=== PATIENT | female | born 1950 | race Caucasian/White ===

== ENCOUNTER 2018-02-25 12:50 | Outpatient (RCR) | payer MEDICARE, SELFPAY ==
--- NOTE | 2018-02-25 12:58 | COCO.CNN ---
Primary Reason for Visit Insurance (Asking for assistance filling out [facility] patient assistance application) Referral to Care Coordination Referral to Care Coordination: No Referral to Services: No - Referral From Referral From: Self Care Plan - Plan of Care Assessment/Background: Elsa brought in the patient assistance application from [facility] asking for assistance in filling it out. She needed to apply for [facility] which we did today. [facility] Action Plan/Progress: She will wait for the denial from [facility] then return and complete the [facility] patient assistance application.
--- NOTE | 2018-02-25 13:05 | PDOC.CNN_ITS ---
Primary Reason for Visit Insurance (Asking for assistance filling out [facility] patient assistance application ) Referral to Care Coordination Referral to Care Coordination: No Referral to Services: No - Referral From Referral From: Self Care Plan - Plan of Care Assessment/Background: Elsa brought in the patient assistance application from [facility] asking for assistance in filling it out. She needed to apply for [facility] which we did today. [facility] Action Plan/Progress: She will wait for the denial from [employer] then return and complete the [facility] patient assistance application.
== END 2018-02-27 23:59 | disposition home or self-care (01) ==
LOC: COCO 12:50
PROVIDERS: PCP Nurse Practitioner Family; Visit Provider Nurse Practitioner Family

== ENCOUNTER 2018-04-07 13:50 | Emergency (ER) | payer OTHER, SELFPAY ==
[2018-04-07 13:55] VITALS: BP 168/79; PULSE 82; RESP 16; TEMP 36.6; O2SAT 97
--- NOTE | 2018-04-07 14:07 | W.ED.GENAD ---
Discharge Plan Disposition Patient Disposition: HOME Condition: Stable Discharge Details Chief Complaint: Orthopedic Clinical Impression: Groin strain Primary Care Provider: Suzy Montejo ED Provider: Haseeb Zimmer Home Meds and New Rx's Prescriptions: New methocarbamol 500 mg tablet 500 - 1,000 mg PO Q6H PRN (Reason: Back pain or spasm) Qty: 14 RF: 0 ibuprofen 600 mg tablet 600 mg PO Q8H PRN (Reason: pain) Qty: 14 RF: 0 Continue ascorbic acid (vitamin C) 500 MG tablet 500 mg PO DAILY RF: 0 meclizine 12.5 MG tablet 25 mg PO tid prn Qty: 30 RF: 2 vitamin A 8,000 UNIT capsule 8,000 units PO DAILY RF: 0 cyanocobalamin (vitamin B-12) [Vitamin B-12] 1,000 MCG tablet 1,000 mcg PO DAILY RF: 0 jlctnmdy-dkyp-GJ-calcium-mins [Women's Daily Caplet] 1 EACH tablet 1 ea PO DAILY RF: 0 pravastatin 20 MG tablet 20 mg PO DAILY Qty: 90 RF: 4 hydrochlorothiazide 12.5 MG tablet 12.5 mg PO DAILY Qty: 90 RF: 4 Metoprolol Succinate 50 MG TAB.ER.24H 50 mg PO DAILY Qty: 90 RF: 4 Discontinued ibuprofen 200 MG capsule 1 - 2 cap PO PRN RF: 0 Discharge Instructions Instructions: Muscle Strain (ED) Additional Instructions: Home to rest today. Continue ibuprofen in the form of prescribed Motrin. No additional ibuprofen with this. Methocarbamol as needed for muscular pain. May use heat and gentle massage to reduce discomfort as well. Return if you develop back pain, numbness or tingling of extremities, or any other acute concerns. Follow-up with regular doctor if not improved in 5 days time Stand Alone Forms: Work Release Medical Decision Making This is a 67-year-old female who works as a [employer]. She states that she had 2 perform double duties recently and since that time as a dull, achy, constant bilateral groin pain is worse with adduction of the legs. No back pain. No numbness or tingling. She has had no motor weakness. She denies a fall. Her exam shows no deficits. There is no evidence of sciatica. It is consistent with groin/abductor strain. Will increase her use of NSAIDs, add methocarbamol, provide her with a day of work. She understands return precautions. HPI General Mode of arrival: ambulatory. Date/Time Provider Initiated Documentation: 04/07/18 13:55. Limitations to Documentation: no limitations. Information obtained by: patient. 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 Patient reports no radiation. Patient started experiencing this day(s) and it has been constant. Rest improves symptom(s), Movement worsens symptoms . Patient notes no other symptoms.. Patient did receive the following treatments prior to arrival, none Related Data Home Medications Medication Instructions Recorded Confirmed ascorbic acid (vitamin C) 500 mg PO DAILY 05/30/13 03/04/18 meclizine 25 mg PO tid prn #30 tab-cap 06/05/14 03/04/18 cyanocobalamin (vitamin B-12) 1,000 mcg PO DAILY 07/04/16 03/04/18 [Vitamin B-12] cfmgvuab-icba-EJ-calcium-mins 1 ea PO DAILY 07/04/16 03/04/18 [Women's Daily Caplet] vitamin A 8,000 units PO DAILY tab-cap 07/04/16 03/04/18 hydrochlorothiazide 12.5 mg PO DAILY #90 tab-cap 08/28/17 03/04/18 pravastatin 20 mg PO DAILY #90 tab-cap 08/28/17 03/04/18 ibuprofen 600 mg PO Q8H PRN #14 tab 04/07/18 methocarbamol 500 - 1,000 mg PO Q6H PRN #14 tab 04/07/18 Previous Rx's Medication Instructions Recorded hydrochlorothiazide 12.5 mg PO DAILY #90 tab-cap 08/28/17 pravastatin 20 mg PO DAILY #90 tab-cap 08/28/17 ibuprofen 600 mg PO Q8H PRN #14 tab 04/07/18 methocarbamol 500 - 1,000 mg PO Q6H PRN #14 tab 04/07/18 Allergies Allergy/AdvReac Type Severity Reaction Status Date / Time No Known Allergies Allergy Unverified 03/04/18 09:20 General Stated Complaint: Orthopedic TON: 4 Review of Systems Review of Systems No bowel or bladder incontinence, no motor weakness, no numbness or tingling, no fall or injury. 8 systems reviewed and otherwise negative PFSH Family History Mother Essential hypertension Personal history of malignant neoplasm Alzheimers disease Hyperlipidemia Father Personal history of malignant neoplasm Grandfather Alzheimers disease Grandfather Personal history of malignant neoplasm Grandmother No problems noted. Grandmother Alzheimers disease Brother No problems noted. Maternal Aunt Alzheimers disease Son No problems noted. Son No problems noted. Daughter No problems noted. Brother No problems noted. Bladder Surgery (~05/1998) HERNIA REPAIR Vaginal hysterectomy (11/07/99) Family History Mother Essential hypertension Personal history of malignant neoplasm Alzheimers disease Hyperlipidemia Father Personal history of malignant neoplasm Grandfather Alzheimers disease Grandfather Personal history of malignant neoplasm Grandmother No problems noted. Grandmother Alzheimers disease Brother No problems noted. Maternal Aunt Alzheimers disease Son No problems noted. Son No problems noted. Daughter No problems noted. Brother No problems noted. Social History current occupational status: employed current occupation: [employer] frequency: 5-6 times per week duration: 30-45 minutes/day Smoking/Tobacco Use Status: Never alcohol intake: current alcohol intake frequency: a few times a month substance use type: does not use hope/amish: No preference special hope needs: No Surgical History Bladder Surgery (~05/1998) HERNIA REPAIR Vaginal hysterectomy (11/07/99) Social History current occupational status: employed current occupation: [employer] frequency: 5-6 times per week duration: 30-45 minutes/day Smoking/Tobacco Use Status: Never alcohol intake: current alcohol intake frequency: a few times a month substance use type: does not use hope/amish: No preference special hope needs: No Exam Narrative Exam Narrative: GEN: awake, alert, oriented 3. Pleasant, well groomed, interactive. HEAD: Normocephalic, atraumatic ENT: Mucous membranes moist, oropharynx unremarkable, External ear exam unremarkable EYES: PERRL, EOMI NECK: Full ROM, no EWELINA, no menigismus CHEST/RESP: Nontender, clear to auscultation bilateral, no wheeze/rhonchi/rales CARDIOVASCULAR: RRR, no murmur, rub marilee. 2+ Rad pulse bilateral ABDOMEN: Soft, nontender, no mass. +Bowel sounds EXT: Full ROM, no edema, no rash. Motor is 5 out of 5 throughout the upper and lower extremity. 2+ patella and ankle reflex bilaterally. Sensation including saddle distribution is intact. Great toe proprioception intact. Pain is elicited with resisted adduction of the groin Neuro: Grossly normal neurologic exam, conversant, interactive. Psych: Speech fluent, thoughts congruent, affect normal Course Vital Signs Temperature 36.6 C 04/07/18 13:55 Pulse 82 04/07/18 13:55 Respiratory Rate 16 04/07/18 13:55 Blood Pressure 168/79 H 04/07/18 13:55 Pulse Oximetry 97 04/07/18 13:55 Temperature 36.6 C 04/07/18 13:55 Temperature Source Temporal Artery Scan 04/07/18 13:55 Pulse 82 04/07/18 13:55 Respiratory Rate 16 04/07/18 13:55 Respiratory Effort 04/07/18 13:59 Blood Pressure 168/79 H 04/07/18 13:55 Pulse Oximetry 97 04/07/18 13:55 Oxygen Delivery Method Room Air 04/07/18 13:55 Oxygen Flow Rate 0 04/07/18 13:55 Pain Level 7 04/07/18 13:55
--- NOTE | 2018-04-07 14:11 | ED.GENADUL_ITS ---
Discharge Plan Disposition Patient Disposition: HOME Condition: Stable Discharge Details Chief Complaint: Orthopedic Clinical Impression: Groin strain Primary Care Provider: Suzy Montejo ED Provider: Haseeb Zimmer Home Meds and New Rx's Prescriptions: New methocarbamol 500 mg tablet 500 - 1,000 mg PO Q6H PRN (Reason: Back pain or spasm) Qty: 14 RF: 0 ibuprofen 600 mg tablet 600 mg PO Q8H PRN (Reason: pain) Qty: 14 RF: 0 Continue ascorbic acid (vitamin C) 500 MG tablet 500 mg PO DAILY RF: 0 meclizine 12.5 MG tablet 25 mg PO tid prn Qty: 30 RF: 2 vitamin A 8,000 UNIT capsule 8,000 units PO DAILY RF: 0 cyanocobalamin (vitamin B-12) [Vitamin B-12] 1,000 MCG tablet 1,000 mcg PO DAILY RF: 0 uiacokey-wrqb-PP-calcium-mins [Women's Daily Caplet] 1 EACH tablet 1 ea PO DAILY RF: 0 pravastatin 20 MG tablet 20 mg PO DAILY Qty: 90 RF: 4 hydrochlorothiazide 12.5 MG tablet 12.5 mg PO DAILY Qty: 90 RF: 4 Metoprolol Succinate 50 MG TAB.ER.24H 50 mg PO DAILY Qty: 90 RF: 4 Discontinued ibuprofen 200 MG capsule 1 - 2 cap PO PRN RF: 0 Discharge Instructions Instructions: Muscle Strain (ED) Additional Instructions: Home to rest today. Continue ibuprofen in the form of prescribed Motrin. No additional ibuprofen with this. Methocarbamol as needed for muscular pain. May use heat and gentle massage to reduce discomfort as well. Return if you develop back pain, numbness or tingling of extremities, or any other acute concerns. Follow-up with regular doctor if not improved in 5 days time Stand Alone Forms: Work Release Medical Decision Making This is a 67-year-old female who works as a [employer] school/[employer]. She states that she had 2 perform double duties recently and since that time as a dull, achy, constant bilateral groin pain is worse with adduction of the legs. No back pain. No numbness or tingling. She has had no motor weakness. She denies a fall. Her exam shows no deficits. There is no evidence of sciatica. It is consistent with groin/abductor strain. Will increase her use of NSAIDs, add methocarbamol, provide her with a day of work. She understands return precautions. HPI General Mode of arrival: ambulatory . Date/Time Provider Initiated Documentation: 04/07/18 13:55 . Limitations to Documentation: no limitations . Information obtained by: patient . 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 Patient reports no radiation. Patient started experiencing this day(s) and it has been constant. Rest improves symptom(s), Movement worsens symptoms . Patient notes no other symptoms.. Patient did receive the following treatments prior to arrival, none Related Data Home Medications Medication Instructions Recorded Confirmed ascorbic acid (vitamin C) 500 mg PO DAILY 05/30/13 03/04/18 meclizine 25 mg PO tid prn #30 tab-cap 06/05/14 03/04/18 cyanocobalamin (vitamin B-12) 1,000 mcg PO DAILY 07/04/16 03/04/18 [Vitamin B-12] mwuzwukb-vklj-AE-calcium-mins 1 ea PO DAILY 07/04/16 03/04/18 [Women's Daily Caplet] vitamin A 8,000 units PO DAILY tab-cap 07/04/16 03/04/18 hydrochlorothiazide 12.5 mg PO DAILY #90 tab-cap 08/28/17 03/04/18 pravastatin 20 mg PO DAILY #90 tab-cap 08/28/17 03/04/18 ibuprofen 600 mg PO Q8H PRN #14 tab 04/07/18 methocarbamol 500 - 1,000 mg PO Q6H PRN #14 tab 04/07/18 Previous Rx's Medication Instructions Recorded hydrochlorothiazide 12.5 mg PO DAILY #90 tab-cap 08/28/17 pravastatin 20 mg PO DAILY #90 tab-cap 08/28/17 ibuprofen 600 mg PO Q8H PRN #14 tab 04/07/18 methocarbamol 500 - 1,000 mg PO Q6H PRN #14 tab 04/07/18 Allergies Allergy/AdvReac Type Severity Reaction Status Date / Time No Known Allergies Allergy Unverified 03/04/18 09:20 General Stated Complaint: Orthopedic TON: 4 Review of Systems Review of Systems No bowel or bladder incontinence, no motor weakness, no numbness or tingling, no fall or injury. 8 systems reviewed and otherwise negative PFSH Family History Mother Essential hypertension Personal history of malignant neoplasm Alzheimers disease Hyperlipidemia Father Personal history of malignant neoplasm Grandfather Alzheimers disease Grandfather Personal history of malignant neoplasm Grandmother No problems noted. Grandmother Alzheimers disease Brother No problems noted. Maternal Aunt Alzheimers disease Son No problems noted. Son No problems noted. Daughter No problems noted. Brother No problems noted. Bladder Surgery (~05/1998) HERNIA REPAIR Vaginal hysterectomy (11/07/99) Family History Mother Essential hypertension Personal history of malignant neoplasm Alzheimers disease Hyperlipidemia Father Personal history of malignant neoplasm Grandfather Alzheimers disease Grandfather Personal history of malignant neoplasm Grandmother No problems noted. Grandmother Alzheimers disease Brother No problems noted. Maternal Aunt Alzheimers disease Son No problems noted. Son No problems noted. Daughter No problems noted. Brother No problems noted. Social History current occupational status: employed current occupation: [employer] frequency: 5-6 times per week duration: 30-45 minutes/day Smoking/Tobacco Use Status: Never alcohol intake: current alcohol intake frequency: a few times a month substance use type: does not use hope/jain: No preference special hope needs: No Surgical History Bladder Surgery (~05/1998) HERNIA REPAIR Vaginal hysterectomy (11/07/99) Social History current occupational status: employed current occupation: [employer] frequency: 5-6 times per week duration: 30-45 minutes/day Smoking/Tobacco Use Status: Never alcohol intake: current alcohol intake frequency: a few times a month substance use type: does not use hope/jain: No preference special hope needs: No Exam Narrative Exam Narrative: GEN: awake, alert, oriented 3. Pleasant, well groomed, interactive. HEAD: Normocephalic, atraumatic ENT: Mucous membranes moist, oropharynx unremarkable, External ear exam unremarkable EYES: PERRL, EOMI NECK: Full ROM, no EWELINA, no menigismus CHEST/RESP: Nontender, clear to auscultation bilateral, no wheeze/rhonchi/rales CARDIOVASCULAR: RRR, no murmur, rub marilee. 2+ Rad pulse bilateral ABDOMEN: Soft, nontender, no mass. +Bowel sounds EXT: Full ROM, no edema, no rash. Motor is 5 out of 5 throughout the upper and lower extremity. 2+ patella and ankle reflex bilaterally. Sensation including saddle distribution is intact. Great toe proprioception intact. Pain is elicited with resisted adduction of the groin Neuro: Grossly normal neurologic exam, conversant, interactive. Psych: Speech fluent, thoughts congruent, affect normal Course Vital Signs Temperature 36.6 C 04/07/18 13:55 Pulse 82 04/07/18 13:55 Respiratory Rate 16 04/07/18 13:55 Blood Pressure 168/79 H 04/07/18 13:55 Pulse Oximetry 97 04/07/18 13:55 Temperature 36.6 C 04/07/18 13:55 Temperature Source Temporal Artery Scan 04/07/18 13:55 Pulse 82 04/07/18 13:55 Respiratory Rate 16 04/07/18 13:55 Respiratory Effort 04/07/18 13:59 Blood Pressure 168/79 H 04/07/18 13:55 Pulse Oximetry 97 04/07/18 13:55 Oxygen Delivery Method Room Air 04/07/18 13:55 Oxygen Flow Rate 0 04/07/18 13:55 Pain Level 7 04/07/18 13:55
== END 2018-04-07 14:24 | disposition home or self-care (01) ==
LOC: ER 14:25
PROVIDERS: Emergency Provider Emergency Medicine; PCP Nurse Practitioner Family
DX: S39.013A Strain of muscle, fascia and tendon of pelvis, initial encounter (principal); X58.XXXA Exposure to other specified factors, initial encounter; I10 Essential (primary) hypertension
CPT/HCPCS: 99283

== ENCOUNTER 2018-09-06 04:14 | Outpatient (CLI) | payer MEDICARE, SELFPAY ==
[2018-09-06 12:13] LABS: Hemoglobin A1C 6.2 % (4.5-6.2)
[2018-09-06 12:14] LABS: Anion Gap 11.5 mmol/L (3-11); BUN 21 mg/dL (7-18); CO2 28.5 mmol/L (21.0-32.0); CREATININE 0.66 mg/dL (0.55-1.02); Calcium 9.5 mg/dL (8.5-10.1); Chloride 102 mmol/L (98-107); Cholesterol 228 mg/dL (50-200); Glucose 94 mg/dL (70-100); HDL Cholesterol 66 mg/dL (40-60); LDL CHOLESTEROL 127 mg/dL (<100); Potassium 4.1 mmol/L (3.5-5.1); Sodium 142 mmol/L (136-145); Triglyceride 177 mg/dL (30-150)
== END 2018-09-06 04:34 ==
PROVIDERS: PCP Nurse Practitioner Family; Visit Provider Nurse Practitioner Family
DX: E78.5 Hyperlipidemia, unspecified (principal); I10 Essential (primary) hypertension; R79.89 Other specified abnormal findings of blood chemistry
CPT/HCPCS: 80048; 80061; 83721; 83036

== ENCOUNTER 2018-09-12 01:27 | Outpatient (CLI) | payer MEDICARE, SELFPAY ==
--- NOTE | 2018-09-12 14:48 | DI.DEXA_ITS ---
SYMPTOM/DIAGNOSIS: OSTEOPOROSIS, M81.0 DEXA SCAN: The OPAL image shows no evidence of compression fractures. There is some accentuation of a thoracic kyphosis. The bone mineral density measurements of the lumbar spine correspond to a total T score of -2.9, consistent with osteoporosis. This is not significantly changed from the previous exam. The bone mineral density measurements of the left hip correspond to a total T score of -2.6 and a femoral neck T score of -3.0, also consistent with osteopenia. There has been no significant change from the previous exam. The right forearm bone mineral density measurements correspond to a T score of the distal third of -3.3. This is a 7.4% decrease when compared with 2015. IMPRESSION: Osteoporosis. The bone density is stable in the lumbar spine and left hip but is decreased in the right forearm.
--- NOTE | 2018-09-12 15:55 | DI.MAMMO_ITS ---
SYMPTOM/DIAGNOSIS: SCREENING, Z12.31 MAMMOGRAMS: Mammograms were interpreted according to the usual protocol including computer analysis with CAD system, tomosynthesis and C view imaging. Comparison is made with exams from [id number]. The breasts are composed of scattered fibroglandular densities, breast density, Category B. No suspicious masses or suspicious microcalcifications are seen. There has been no significant change. IMPRESSION: Category 1, negative mammogram. Yearly screening mammography is recommended. [facility] ASSESSMENT OF FINDINGS: Negative. Category 1. Patient will receive a letter notifying them of these results. BI-RADS category B. There are scattered areas of fibroglandular density.
== END 2018-09-12 01:47 ==
PROVIDERS: PCP Nurse Practitioner Family; Visit Provider Nurse Practitioner Family
DX: M81.0 Age-related osteoporosis without current pathological fracture (principal); M85.88 Other specified disorders of bone density and structure, other site; Z12.31 Encounter for screening mammogram for malignant neoplasm of breast
CPT/HCPCS: 77063; 77067; 77080

== ENCOUNTER 2018-09-25 13:01 | Emergency (ER) | payer MEDICARE, SELFPAY ==
[2018-09-25 13:11] VITALS: BP 174/84; PULSE 76; RESP 12; TEMP 36.7; O2SAT 97
--- NOTE | 2018-09-25 13:15 | DI.RAD_ITS ---
SYMPTOMS/DIAGNOSIS: PAIN LEFT FIFTH TOE: There is a minimally displaced transverse fracture involving the proximal metaphysis of the proximal phalanx of the left great toe.
--- NOTE | 2018-09-25 13:17 | ED.GENADUL_ITS ---
Discharge Plan Disposition Patient Disposition: HOME Condition: Stable Discharge Details Chief Complaint: Orthopedic Clinical Impression: Fracture of toe, closed Primary Care Provider: Suzy Montejo ED Provider: Marcus Gage Home Meds and New Rx's Prescriptions: Continued varicella-zoster [id number]-AS01B (PF) 50 mcg/0.5 mL suspension for reconstitution 0.5 ml IM ONCE Qty: 1 RF: 0 hydrochlorothiazide 12.5 mg tablet 12.5 mg PO DAILY Qty: 90 RF: 4 metoprolol succinate 50 mg tablet extended release 24 hr 50 mg PO DAILY Qty: 90 RF: 4 pravastatin 20 mg tablet 20 mg PO DAILY Qty: 90 RF: 4 ascorbic acid (vitamin C) 500 MG tablet 500 mg PO DAILY RF: 0 meclizine 12.5 MG tablet 25 mg PO tid prn Qty: 30 RF: 2 vitamin A 8,000 UNIT capsule 8,000 units PO DAILY RF: 0 cyanocobalamin (vitamin B-12) [Vitamin B-12] 1,000 MCG tablet 1,000 mcg PO DAILY RF: 0 Women's Daily Caplet 1 EACH tablet 1 ea PO DAILY RF: 0 ibuprofen 600 mg tablet 600 mg PO Q8H PRN (Reason: pain) Qty: 14 RF: 0 Discharge Instructions Instructions: Toe Fracture (ED) Additional Instructions: Please wear postoperative shoe and keep toe jacob tape. Call the specialist office for arrangement of reassessment of your toe fracture. You may continue to use [id number] pain medication as needed for discomfort Stand Alone Forms: Work Release Referrals: Floyd Urbina DPM [[facility] STAFF PHYSICIAN] - (Call the office for arrangement of follow-up appointment) Discharge Data Discharge Date/Time-TO BE ENTERED AT DEPARTURE: 09/25/18 14:31 Medical Decision Making Patient presenting to the emergency department for chief complaint of left toe injury. She states approximately 20 minutes prior to arrival she caught her left fifth toe on a piece of furniture and afterwards noted some spreading of her toes and significant amount of pain discomfort. Patient denies any other symptoms. Patient has tenderness to the MTP and throughout the entire digit, slight tenderness to the distal fifth metatarsal but more so to the digit itself. There is slight lateral rotation of the digit otherwise no other major deformity is noted. Plan to do radiological imaging to rule out acute fracture. Patient given Tylenol pending results. Review of radiological imaging shows proximal phalanx fracture of the fifth toe. Toe was jacob taped and patient placed in postoperative shoe and placed upon follow-up list for Dr. Urbina for toe fracture. HPI General Mode of arrival: ambulatory . Date/Time Provider Initiated Documentation: 09/25/18 13:11 . Limitations to Documentation: no limitations . Information obtained by: patient and RN notes reviewed . History of Present Illness 67 year old F presents to the emergency department with the chief complaint of Left toe injury, described as moderate, with intensity rated at 2. Quality is described as aching, and is localized to the left and lower extremity. Patient started experiencing this minute(s) (20) and it has been constant. Patient notes no other symptoms.. Patient did receive the following treatments prior to arrival, none Related Data Home Medications Medication Instructions Recorded Confirmed ascorbic acid (vitamin C) 500 mg PO DAILY 05/30/13 09/25/18 meclizine 25 mg PO tid prn #30 tab-cap 06/05/14 09/25/18 Women's Daily Caplet 1 ea PO DAILY 07/04/16 09/25/18 cyanocobalamin (vitamin B-12) 1,000 mcg PO DAILY 07/04/16 09/25/18 [Vitamin B-12] vitamin A 8,000 units PO DAILY tab-cap 07/04/16 09/25/18 ibuprofen 600 mg PO Q8H PRN #14 tab 04/07/18 09/25/18 hydrochlorothiazide 12.5 mg tablet 12.5 mg PO DAILY #90 tab-cap 09/05/18 09/25/18 metoprolol succinate ER 50 mg 50 mg PO DAILY #90 tab 09/05/18 09/25/18 tablet,extended release 24 hr pravastatin 20 mg tablet 20 mg PO DAILY #90 tab-cap 09/05/18 09/25/18 varicella-zoster glycoE vacc-AS01B 0.5 ml IM ONCE #1 each 09/05/18 09/05/18 adj(PF) 50 mcg/0.5 mL IM susp, kit Previous Rx's Medication Instructions Recorded ibuprofen 600 mg PO Q8H PRN #14 tab 04/07/18 hydrochlorothiazide 12.5 mg tablet 12.5 mg PO DAILY #90 tab-cap 09/05/18 metoprolol succinate ER 50 mg 50 mg PO DAILY #90 tab 09/05/18 tablet,extended release 24 hr pravastatin 20 mg tablet 20 mg PO DAILY #90 tab-cap 09/05/18 varicella-zoster glycoE vacc-AS01B 0.5 ml IM ONCE #1 each 09/05/18 adj(PF) 50 mcg/0.5 mL IM susp, kit Allergies Allergy/AdvReac Type Severity Reaction Status Date / Time No Known Allergies Allergy Verified 09/25/18 13:18 General Stated Complaint: Orthopedic TON: 4 Review of Systems Cardiovascular Denies syncope Musculoskeletal Reports as per HPI, Denies numbness and Denies tingling Integumentary/Breasts Denies rash, Denies sores and Denies wounds Neurologic Denies syncope, Denies numbness and Denies tingling PFSH Medical History Essential hypertension (Chronic) Hyperlipidemia (Chronic) Osteoporosis (Chronic 07/21/14) BPPV (benign paroxysmal positional vertigo) (Inactive) Surgical History Bladder Surgery (Inactive 11/06/09) Vaginal hysterectomy (Inactive 11/06/09) Family History Mother Essential hypertension Alzheimers disease Hyperlipidemia Father Liver cancer Brother No problems noted. Brother No problems noted. Son No problems noted. Son No problems noted. Daughter No problems noted. Maternal Grandfather Alzheimers disease Maternal Grandmother Brain aneurysm Paternal Grandfather Lung cancer Paternal Grandmother Alzheimers disease Social History Smoking/Tobacco Use Status: Former Tobacco Use Tobacco: How many years used: 30 Alcohol Intake: current Alcohol Intake frequency: a few times a month Drug use: Never Substance use type: does not use Caregiver/Support person: No Housing: apartment Communication Needs: None Do you need help understanding health information?: Rarely current occupation: [employer] Pets and animals: No Sexually active: No Do you think of yourself as: straight/heterosexual Current gender identity: female What is your relationship status?: How often do you talk on the phone with friends or family?: twice per week How often do you get together with friends or relatives?: once per week How often do you attend quaker or scientologist services?: decline to answer Do you belong to any clubs or organized social groups?: no Panel score (0-1 are the most socially isolated patients): 1 What type of physical activity do you participate in: walking Duration: 30-45 minutes/day Frequency: 5-6 times per week Sirisha/Baptist: None Special sirisha needs: No Seatbelt use: always Helmet use: Yes Helmet use: always 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 Do you feel safe at home: Yes Do you feel safe in your relationship?: Yes Female Reproductive History Menstrual Menopause type: surgical History History 3 Para 3 Hx # Term Pregnancies Multiple births Hx # Pregnancies Ectopic pregnancies AB induced Hx Number of Living Children 3 AB spontaneous Exam Const General: cooperative and no acute distress Orientation: alert, awake and oriented x3 Resp Effort & Inspection: normal respiratory effort and able to speak in complete sentences Cardio Rate: regular rate Rhythm: regular rhythm Extrem Left lower extremity: foot Details: normal capillary refill, tenderness Location: of the dorsal foot (Over distal fifth metatarsal) and of another digit Location: the 5th digit, at the MTP joint and along the entire digit, vascular exam Details: dorsalis pedis pulse present and other (Slight lateral rotation of the fifth toe is noted); no ecchymosis Course Vital Signs Temperature 36.7 C 09/25/18 13:11 Pulse 76 09/25/18 13:11 Respiratory Rate 12 09/25/18 13:11 Blood Pressure 174/84 H 09/25/18 13:11 Pulse Oximetry 97 09/25/18 13:11 Temperature 36.7 C 09/25/18 13:11 Temperature Source Temporal Artery Scan 09/25/18 13:11 Pulse 76 09/25/18 13:11 Respiratory Rate 12 09/25/18 13:11 Respiratory Effort Non-Labored 09/25/18 13:15 Blood Pressure 174/84 H 09/25/18 13:11 Blood Pressure Position Sitting 09/25/18 13:11 Pulse Oximetry 97 09/25/18 13:11 Oxygen Delivery Method Room Air 09/25/18 13:11 Oxygen Flow Rate 0 09/25/18 13:11 Pain Level 2 09/25/18 13:11
[2018-09-25] MEDS: Acetaminophen 325 MG TAB 650 MG PO (13:21)
--- NOTE | 2018-09-26 09:00 | PDOC.ERCMPRO ---
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 Referral faxed to Dr. Urbina's office this am.
== END 2018-09-25 14:31 | disposition home or self-care (01) ==
PROVIDERS: Emergency Provider Nurse Practitioner Family; PCP Nurse Practitioner Family
DX: S92.512A Displaced fracture of proximal phalanx of left lesser toe(s), initial encounter for closed fracture (principal); W22.03XA Walked into furniture, initial encounter
CPT/HCPCS: 28510; 73660

== ENCOUNTER 2020-01-09 13:27 | Outpatient (REF) | payer MEDICARE, SELFPAY ==
[2020-01-09 14:28] LABS: Anion Gap 7.2 mmol/L (3-11); BUN 21 mg/dL (7-18); CO2 28.8 mmol/L (21.0-32.0); CREATININE 0.61 mg/dL (0.55-1.02); Calcium 9.4 mg/dL (8.5-10.1); Calculated LDL 134 mg/dL (<100); Chloride 101 mmol/L (98-107); Cholesterol 234 mg/dL (<200); Glucose 95 mg/dL (74-106); HDL Cholesterol 62 mg/dL (40-60); Potassium 3.7 mmol/L (3.5-5.1); Sodium 137 mmol/L (136-145); Triglyceride 193 mg/dL (<150)
[2020-01-09 14:31] LABS: Hemoglobin A1C 5.8 % (<5.7)
[2020-01-12 06:02] LABS: Vitamin D 25 Total 43.2 ng/ml (30-100)
== END 2020-01-09 13:47 ==
LOC: LBN 13:27
PROVIDERS: PCP Nurse Practitioner Family; Visit Provider Nurse Practitioner Family
DX: I10 Essential (primary) hypertension (principal); E78.5 Hyperlipidemia, unspecified; R73.03 Prediabetes; M81.0 Age-related osteoporosis without current pathological fracture
CPT/HCPCS: 80048; 80061; 82306; 83036

== ENCOUNTER 2021-01-20 01:35 | Outpatient (CLI) | payer MEDICARE, SELFPAY ==
[2021-01-20 12:38] LABS: HCT 37.6 % (36.0-46.0); HGB 12.2 g/dL (11.2-15.7); MCH 29.7 pg (27.0-33.0); MCHC 32.4 % (32.0-36.0); MCV 91.5 fL (80-95); MPV 9.4 fL (8.0-11.0); Platelet Count 371 10^3/uL (130-400); RBC 4.11 10^6/uL (3.93-5.22); RDW 14.1 % (11.7-14.6); RDW-SD 47.6 fL; WBC 5.98 10^3/uL (4.4-10.8)
[2021-01-20 13:07] LABS: Anion Gap 10.1 mmol/L (3-11); BUN 26 mg/dL (7-18); CO2 25.9 mmol/L (21.0-32.0); CREATININE 0.7 mg/dL (0.55-1.02); Calcium 9.1 mg/dL (8.5-10.1); Calculated LDL 139 mg/dL (<100); Chloride 106 mmol/L (98-107); Cholesterol 232 mg/dL (<200); Ferritin 70 ng/mL (8-252); Glucose 93 mg/dL (74-106); HDL Cholesterol 57 mg/dL (40-60); Potassium 4.3 mmol/L (3.5-5.1); Sodium 142 mmol/L (136-145); Triglyceride 182 mg/dL (<150)
== END 2021-01-20 01:36 | disposition home or self-care (01) ==
LOC: LOS 01:35
PROVIDERS: PCP Nurse Practitioner Family; Visit Provider Nurse Practitioner Family
DX: R73.03 Prediabetes (principal); I10 Essential (primary) hypertension; G25.81 Restless legs syndrome; R79.89 Other specified abnormal findings of blood chemistry; M81.0 Age-related osteoporosis without current pathological fracture
CPT/HCPCS: 36415; 80048; 80061; 85027; 82728; 83036

== ENCOUNTER → 2021-05-05 02:22 | Outpatient (CLI) | payer MEDICARE, SELFPAY ==
[2021-05-05 14:51] LABS: CREATININE 0.7 mg/dL (0.55-1.02); TSH (W/Ref FT4) 2.12 uIU/mL (0.36-3.74)
[2021-05-05 14:52] LABS: Iron 88 ug/dL (50-170); Total Iron Binding Capacity 363 ug/dL (250-450); Transferrin Sat 24 % (15-50)
[2021-05-05] MEDS: Gadoterate meglumine 20 ML VIAL 11 ML IVP (14:54)
--- NOTE | 2021-05-05 15:10 | DI.MRI_ITS ---
Exam(s) MR BRAIN WO/W EXAM: MR BRAIN WO/W CLINICAL HISTORY: gait disturbance,RESTLESS LEG SYNDROME,G25.81.R26.89 TECHNIQUE: Multiplanar multisequence MRI of the brain was performed. CONTRAST MATERIAL: IV Contrast: 11 ML of Dotarem contrast administered. COMPARISON: CT HEAD WITH/WITHOUT CONTRAST from 06/08/2008 FINDINGS: The examination is limited due to patient motion artifact. VENTRICLES AND EXTRA AXIAL SPACES: Normal in size and morphology for the patient's age. HEMORRHAGE: None. CEREBRAL PARENCHYMA: No focus of restricted diffusion to suggest acute infarct. No space-occupying le lincoln identified. There are few foci of hyperintense signal in the white matter on the T2 and FLAIR im ages likely reflecting small vessel ischemic disease. MIDLINE SHIFT: None. BRAINSTEM/CEREBELLUM: Normal. CALVARIUM: Normal. ENHANCEMENT: No suspicious enhancement identified. VISUALIZED PARANASAL SINUSES/MASTOIDS: Clear. [place]: Normal flow void. PITUITARY GLAND: Unremarkable. OTHER FINDINGS: IMPRESSION: Age-appropriate cerebral atrophy and small vessel ischemic disease. DATA REPOSITORY:
[2021-05-05 15:16] LABS: Vitamin D 25 Total 38.3 ng/mL (30-100)
[2021-05-05 15:29] LABS: Vitamin B12 718 pg/mL (193-986)
== END ==
PROVIDERS: PCP Nurse Practitioner Family; Visit Provider Family Medicine
DX: R26.89 Other abnormalities of gait and mobility; G25.81 Restless legs syndrome; E03.9 Hypothyroidism, unspecified; M81.0 Age-related osteoporosis without current pathological fracture; Z83.430 Family history of elevated lipoprotein(a)
CPT/HCPCS: 70553; 82306; 82565; 82607; 83540; 83550; 84443

== ENCOUNTER → 2021-08-11 01:53 | Outpatient (CLI) | payer MEDICARE, SELFPAY ==
--- NOTE | 2021-08-11 08:00 | DI.DEXA_ITS ---
Exam(s) XR DEXA BONE DENSITY W/WO OPAL EXAM: XR DEXA BONE DENSITY W/WO OPAL CLINICAL HISTORY: Reassess osteoporosis, Fosamax x 2yrs,postmenopausal,z78.0 TECHNIQUE: COMPARISON: No exams were available for comparison FINDINGS: DEXA scan was performed according to the usual protocol. Please see the accompanying data sheets. F indings for left hip scanning are T-score -2.9 with left femoral neck T-score -3.6. Prior examinatio n of August 2018 showed left hip T-score -2.6. Lumbar spine scanning shows T-score -2.7, prior examination of 2018 showed lumbar T-score -2.9. Right forearm scanning shows T-score -3.3, prior examination of 2019 also showed forearm T-score -3.3 . IMPRESSION: The findings are consistent with osteoporosis according to the WHO criteria. The lateral vertebral s canogram shows no evidence of a vertebral compression fracture but does show a moderate thoracic kyph osis. RADIATION DOSE DELIVERED: Total DLP
--- NOTE | 2021-08-11 15:08 | DI.MAMMO_ITS ---
Exam(s) MAMMO SCREENING EXAM: MAMMO SCREENING CLINICAL HISTORY: screening,z12.39 TECHNIQUE: Mammograms were interpreted according to the usual protocol including computer analysis w [employer] CAD system, tomosynthesis and C-view imaging. COMPARISON: FINDINGS: The breasts are of moderate density with fairly symmetrical distribution of fibroglandular tissue. N o dominant mass or clumped microcalcification seen. Current examination is compared with previous ex aminations including August 2018. There is in area of focal asymmetric density projected inferiorly in the left breast which is more prominent than on prior examinations. There are a couple of associated microcalcifications which are nonspecific. Additional evaluation with spot compression views and br east ultrasound recommended. Note is also made of an area of asymmetric density in the superior central portion of right breast on MLO view which is more prominent than on prior examination. Additional mammographic views of this a terri also requested to include MLO spot compression view. IMPRESSION: Additional mammographic views of right and left breast are requested as described above. Breast ultr asound may be indicated as well depending on the results of additional mammographic views. BI-RADS Category 0 - Assessment Incomplete: Need additional imaging evaluation Breast Density - Category B - Scattered areas of fibroglandular density
== END ==
PROVIDERS: PCP Nurse Practitioner Family; Visit Provider Nurse Practitioner Family
DX: Z12.31 Encounter for screening mammogram for malignant neoplasm of breast (principal); R92.8 Other abnormal and inconclusive findings on diagnostic imaging of breast; M81.0 Age-related osteoporosis without current pathological fracture; Z78.0 Asymptomatic menopausal state; Z79.899 Other long term (current) drug therapy
CPT/HCPCS: 77063; 77067; 77080

== ENCOUNTER → 2021-08-23 07:54 | Outpatient (BNVA) | payer MEDICARE, SELFPAY | PROVIDERS: PCP Nurse Practitioner Family; Referring Provider Family Medicine; Visit Provider Psychiatry & Neurology Neurology | DX: G47.61 Periodic limb movement disorder (principal); E61.1 Iron deficiency; I10 Essential (primary) hypertension | CPT/HCPCS: 99214 ==

== ENCOUNTER 2021-08-30 01:45 | Outpatient (CLI) | payer MEDICARE, SELFPAY ==
[2021-08-30 12:41] LABS: Ferritin 75 ng/mL (8-252)
== END 2021-08-30 01:46 | disposition home or self-care (01) ==
LOC: LOS 01:45
PROVIDERS: PCP Nurse Practitioner Family; Visit Provider Psychiatry & Neurology Neurology
DX: E61.1 Iron deficiency (principal)
CPT/HCPCS: 36415; 82728

== ENCOUNTER → 2021-09-02 01:24 | Outpatient (CLI) | payer MEDICARE, SELFPAY ==
--- NOTE | 2021-09-02 | DI.US_ITS ---
Exam(s) US BREAST LT COMPLETE US BREAST RT COMPLETE MG MAMMO SCREEN CALL BACK BI EXAM: MG MAMMO SCREEN CALL BACK BI AND BILATERAL COMPLETE BREAST ULTRASOUND CLINICAL HISTORY: F/U ABNL MAMMO, ASYMMETRIC DENISITIES BOTH BREASTS. TECHNIQUE: Spot compression mammographic images of both breasts were obtained with 3D tomosynthesisa nd utilizing computer aided detection (CAD). Also performed 2D images both breast. Complete bilateral breast Ultrasound was also performed, including all 4 quadrants, the retroareolar regions, and both axillary regions.. COMPARISON: Prior mammograms were reviewed. This additional imaging was performed due to findings described on the recent screening mammogram of 08/11/2021. FINDINGS: DIAGNOSTIC BILATERAL MAMMOGRAM: Additional right breast mammographic views performed todayrenders the area described on the recent sc reening mammogram less concerning.In addition, there are no focal findings in the right breast on elaine lentz's ultrasound. Additional left breast mammographic views performed today are somewhat equivocal for a true nodular f inding. The microcalcifications in this region present exhibit benign characteristics. BILATERAL COMPLETE BREAST ULTRASOUND: Ultrasound performed today reveals no significant findings in all 4 quadrants of the right breast and no significant right axillary adenopathy. Left breast ultrasound today reveals 2 findings inferiorly. At the 8 o'clock position there is a 3 m illimeter microcyst. At the 7 o'clock position of the left breast there is a wider than taller 6 x 3 millimeter finding wh ich is either a small nodular density or conglomeration of tiny microcysts. This exhibits neutral th rough transmission. IMPRESSION: 1. No radiographic evidence of malignancy in the right breast. Also negative complete right breast u ltrasound. 2. Left breast mammographic and ultrasound findings as described above, probably benign. 3. Appropriate follow-up (as discussed by myself with the patient today) is repeat left breast imagin g in 3 months time, this to include repeat left breast mammographic views and left breast ultrasound. . The patient was informed of these findings and recommendations prior to leaving the department today. BI-RADS Category 3 - 3 month - Probably Benign Finding: Recommend follow-up mammography in 3 months Breast Density - Category C - Heterogeneously dense Breast density Category C or D implies that the patient has dense breast tissue. Dense breast tissue can make it harder to find cancer on a mammogram. Dense breast tissue is also associated with an incr eased risk of breast cancer. This information about the result of the mammogram report was provided to the patient to raise their awareness. Use this report when you speak with the patient about their risks for breast cancer, which includes their family history. At that time, you may recommend additional screening tests (Ultrasoun d or MRI) as these tests may add significant information. A negative radiographic report should not delay biopsy if a dominant or clinically suspicious mass is present. Up to ten percent of cancers are not identified on mammography. A negative report may reinforce clinical impression. Adenosis and dense breasts may obscure an underlying neoplasm. False positive reports average 6 to 10%. Patient will receive a letter notifying them of these results.
== END ==
PROVIDERS: PCP Nurse Practitioner Family; Visit Provider Nurse Practitioner Family
DX: Z12.31 Encounter for screening mammogram for malignant neoplasm of breast (principal); R92.8 Other abnormal and inconclusive findings on diagnostic imaging of breast; N60.12 Diffuse cystic mastopathy of left breast; N64.59 Other signs and symptoms in breast
CPT/HCPCS: 76642; 77063; 77067

== ENCOUNTER → 2021-09-21 14:35 | Outpatient (BNVA) | payer MEDICARE, SELFPAY | PROVIDERS: PCP Nurse Practitioner Family; Referring Provider Nurse Practitioner Family; Visit Provider Psychiatry & Neurology Neurology | DX: G47.61 Periodic limb movement disorder (principal) | CPT/HCPCS: 99214 ==

== ENCOUNTER → 2021-11-23 14:02 | Outpatient (BNVA) | payer MEDICARE, SELFPAY | PROVIDERS: PCP Nurse Practitioner Family; Referring Provider Nurse Practitioner Family; Visit Provider Psychiatry & Neurology Neurology | DX: G47.61 Periodic limb movement disorder (principal) | CPT/HCPCS: 99213 ==

== ENCOUNTER → 2021-11-30 01:48 | Outpatient (CLI) | payer MEDICARE, SELFPAY ==
--- NOTE | 2021-11-30 13:46 | DI.MAMMO_ITS ---
Exam(s) MG MAMMO DIAGNOSTIC UNI US BREAST LT LIMITED EXAM: MG MAMMO DIAGNOSTIC UNI CLINICAL HISTORY: 3-6 mo f/u, f/u abnl mammo, z09, f/u. TECHNIQUE: Craniocaudal and mediolateral oblique full field digital Mammography views of the left br east with Computer Aided Diagnosis followed by Tomosynthesis and left breast ultrasound. COMPARISON: MG Screening-Bilateral Mammography from 11/12/2012 MG Screening Bilat Mammo from 07/15/2014 MG Screening Bilat Mammo from 07/14/2016 MG MG mammo screening from 09/12/2018 MG MG MAMMO SCREENING from 08/11/2021 US US BREAST RT COMPLETE from 09/02/2021 US US BREAST LT COMPLETE from 09/02/2021 MG MG MAMMO SCREEN CALL BACK BI from 09/02/2021 US US BREAST LT LIMITED from 11/30/2021 FINDINGS: Mammography/Tomosynthesis: Masses/Architectural Distortion: No suspicious masses seen. Microcalcifictions: No suspicious pleomorphic-type are seen. Stable benign-appearing calcifications a nd vascular calcifications. Skin Thickening/Nipple Retraction: None. Left breast US: Echotexture: Normal appearance of the glandular tissue. Shadowing: No suspicious foci. Cyst: None. Solid lesions: None seen. Ductal dilation: None. IMPRESSION: 1. No evidence of malignancy is noted. 2. Unless there is more urgent need, follow-up screening mammography is recommended, as per [place] [employer] guidelines. BI-RADS Category 2 - Benign Findings Breast Density - Category B - Scattered areas of fibroglandular density A negative radiographic report should not delay biopsy if a dominant or clinically suspicious mass is present. Up to ten percent of cancers are not identified on mammography. A negative report may reinforce clinical impression. Adenosis and dense breasts may obscure an underlying neoplasm. False positive reports average 6 to 10%. Patient will receive a letter notifying them of these results.
== END ==
PROVIDERS: PCP Nurse Practitioner Family; Visit Provider Nurse Practitioner Family
DX: Z09 Encounter for follow-up examination after completed treatment for conditions other than malignant neoplasm; R92.8 Other abnormal and inconclusive findings on diagnostic imaging of breast
CPT/HCPCS: 76642; 77061; 77065; G0279

== ENCOUNTER 2022-01-23 02:31 | Outpatient (RCR) | payer MEDICARE, SELFPAY ==
[2022-01-23] MEDS: ZOLEDRONIC ACID/MANNITOL/WATER 5 MG/100 ML BTL 300 MG IVPB (12:55)
[2022-01-23] MEDS: Normal Saline Flush 10 ML SYR IVP (12:56)
== END 2022-01-27 23:59 | disposition home or self-care (01) ==
LOC: INF 02:31
PROVIDERS: PCP Nurse Practitioner Family; Visit Provider Nurse Practitioner Family
DX: M81.0 Age-related osteoporosis without current pathological fracture (principal)
CPT/HCPCS: 96365; J3489

== ENCOUNTER → 2022-02-08 11:56 | Outpatient (CLI) | payer MEDICARE, SELFPAY ==
--- NOTE | 2022-02-08 11:15 | DI.CT_ITS ---
Exam(s) CT ABDOMEN PELVIS W EXAM: CT ABDOMEN PELVIS W INDICATION: LLQ abdominal pain and blood with BM, R10.32. COMPARISON: No exams were available for comparison TECHNIQUE: FINDINGS: CT examination of the abdomen and pelvis was performed with intravenous infusion of 100 cc of Omnipaq ue 350. Images obtained through the lung bases are unremarkable. The liver shows mildly decreased attenuation which may represent hepatic steatosis, no focal lesion i dentified.. Note is made of cholelithiasis without evidence of gallbladder wall thickening, biliary ducts are CT normal. Pancreas appears normal. Spleen is unremarkable in appearance. Adrenals appear normal. The kidneys are unremarkable with no evidence of hydronephrosis, nephrolithiasis, or renal mass.. Ur inary bladder unremarkable. Abdominal aorta is of normal diameter and no major vascular abnormality is seen. No abdominal wall hernia. No abdominal or pelvic adenopathy. Uterus appears atrophic or absent. Appendix is normal. No evidence of diverticulitis or bowel obstruction. Note is made of apparent wall thickening of the mid to distal descending colon extending into the sig moid colon, the findings are suspicious for colitis. Please correlate clinically. IMPRESSION: The appearance is suggestive of colitis involving the descending and sigmoid colon. Please correlate clinically. Note is also made of cholelithiasis. RADIATION DOSE DELIVERED: 901.57mGy.cm Total DLP 901.57mGy.cm Total DLP !Error CTDIvol RADIATION OPTIMIZATION: All CT scans at this facility use at least one of these dose optimization te chniques: automated exposure control; mA and/or kV adjustment per patient size (includes targeted exa ms where dose is matched to clinical indication); or iterative reconstruction.
[2022-02-08 12:11] LABS: Abs Immature Grans 0.06 10^3/uL (0.0-0.06); Absolute Lymphocyte Count 2.04 10^3/uL (1.2-3.4); Absolute Monocyte Count 0.74 10^3/uL (0.1-0.8); Basophils % 0.2; Eosinophils % 0.8; HCT 40.9 % (36.0-46.0); HGB 13.7 g/dL (11.2-15.7); Immature Grans % 0.5; Lymphocytes % 16.5; MCH 29.6 pg (27.0-33.0); MCHC 33.5 % (32.0-36.0); MCV 88 fL (80-95); MPV 8.8 fL (8.0-11.0); Platelet Count 397 10^3/uL (130-400); RBC 4.63 10^6/uL (3.93-5.22); RDW 13.4 % (11.7-14.6); RDW-SD 43.7 fL; WBC 12.35 10^3/uL (4.4-10.8)
[2022-02-08 12:14] LABS: Absolute Basophil Count 0.02 10^3/uL (0.0-0.2); Absolute Neutrophil Count 9.39 10^3/uL (1.2-6.7)
[2022-02-08 12:21] LABS: ALT 26 U/L (14-59); AST 15 U/L (15-37); Albumin 3.9 g/dL (3.4-5.0); Alkaline Phosphatase 111 U/L (46-116); Anion Gap 10.1 mmol/L (3-11); BUN 23 mg/dL (7-18); Bilirubin, Total 0.6 mg/dL (0.2-1.0); CO2 27.9 mmol/L (21.0-32.0); CREATININE 0.7 mg/dL (0.55-1.02); Calcium 9.6 mg/dL (8.5-10.1); Chloride 98 mmol/L (98-107); Estimated GFR 91.26 (mL/min/1.73m2); Glucose 97 mg/dL (74-106); Potassium 3.2 mmol/L (3.5-5.1); Sodium 136 mmol/L (136-145); Total Protein 8.6 g/dL (6.4-8.2)
[2022-02-08 12:23] LABS: Calculated LDL 124 mg/dL (<100); Cholesterol 227 mg/dL (<200); HDL Cholesterol 77 mg/dL (40-60); Triglyceride 132 mg/dL (<150)
[2022-02-08 12:55] LABS: Hemoglobin A1C 6.3 % (<5.7)
[2022-02-08] MEDS: Omnipaque 350 MG/ML 500 ML BTL-Imaging package IJ (14:11)
[2022-02-08] MEDS: Barium Sulfate 2% W/V-Berry Smoothie 450 ML BTL PO (14:11)
[2022-02-08] MEDS: Normal Saline Flush 10 ML SYR IVP (14:12)
== END ==
PROVIDERS: PCP Nurse Practitioner Family; Visit Provider Physician Assistant
DX: R10.32 Left lower quadrant pain (principal); E78.5 Hyperlipidemia, unspecified; I10 Essential (primary) hypertension; R73.03 Prediabetes; R10.9 Unspecified abdominal pain
CPT/HCPCS: 80053; 80061; 74177; 83036; 85025

== ENCOUNTER → 2022-05-24 10:35 | Outpatient (BNVA) | payer MEDICARE, SELFPAY | PROVIDERS: PCP Nurse Practitioner Family; Referring Provider Nurse Practitioner Family; Visit Provider Psychiatry & Neurology Neurology | DX: I10 Essential (primary) hypertension (principal); G47.61 Periodic limb movement disorder | CPT/HCPCS: 99213 ==

== ENCOUNTER → 2022-07-26 14:36 | Outpatient (BNVA) | payer MEDICARE, SELFPAY | PROVIDERS: PCP Nurse Practitioner Family; Referring Provider Nurse Practitioner Family; Visit Provider Psychiatry & Neurology Neurology | DX: G47.61 Periodic limb movement disorder (principal) | CPT/HCPCS: 99213 ==

== ENCOUNTER → 2022-11-20 14:47 | Outpatient (BNVA) | payer MEDICARE, SELFPAY | PROVIDERS: PCP Nurse Practitioner Family; Visit Provider Psychiatry & Neurology Neurology | DX: G47.61 Periodic limb movement disorder (principal); I10 Essential (primary) hypertension | CPT/HCPCS: 99213 ==

== ENCOUNTER 2023-01-25 04:53 | Outpatient (RCR) | payer MEDICARE, SELFPAY ==
[2023-01-25] MEDS: ZOLEDRONIC ACID/MANNITOL/WATER 5 MG/100 ML BTL 300 MG IVPB (12:37)
[2023-01-25] MEDS: Normal Saline Flush 10 ML SYR IVP (12:43)
== END 2023-01-27 23:59 | disposition home or self-care (01) ==
LOC: INF 04:53
PROVIDERS: PCP Nurse Practitioner Family; Visit Provider Nurse Practitioner Family
DX: M81.0 Age-related osteoporosis without current pathological fracture (principal)
CPT/HCPCS: 96365; J3489

== ENCOUNTER 2023-02-01 11:29 | Outpatient (CLI) | payer MEDICARE, SELFPAY ==
[2023-02-01 10:43] LABS: Anion Gap 9.6 mmol/L (3-11); BUN 21 mg/dL (7-18); CO2 28.4 mmol/L (21.0-32.0); CREATININE 0.7 mg/dL (0.55-1.02); Calcium 9.7 mg/dL (8.5-10.1); Chloride 102 mmol/L (98-107); Glucose 102 mg/dL (74-106); Potassium 3.5 mmol/L (3.5-5.1); Sodium 140 mmol/L (136-145)
[2023-02-02 11:14] LABS: Hepatitis C Ab w Rflx HCV PCR Negative (Negative)
== END 2023-02-01 11:30 | disposition home or self-care (01) ==
PROVIDERS: PCP Nurse Practitioner Family; Visit Provider Nurse Practitioner Family
DX: Z00.00 Encounter for general adult medical examination without abnormal findings (principal); R73.03 Prediabetes
CPT/HCPCS: 36415; 80048; 86803; 83036

== ENCOUNTER → 2023-07-18 02:53 | Outpatient (CLI) | payer MEDICARE, SELFPAY ==
--- NOTE | 2023-07-18 12:17 | DI.MAMMO_ITS ---
Exam(s) MAMMO SCREENING EXAM: MAMMO SCREENING CLINICAL HISTORY: screening,Z12.39 TECHNIQUE: Mammograms were interpreted according to the usual protocol including computer analysis w [employer] CAD system, tomosynthesis and C-view imaging. COMPARISON: 2014 through 2021 FINDINGS: The breasts are composed of scattered fibroglandular densities, Breast Density category B. No suspicious masses or suspicious microcalcifications are seen. Stable bilateral areas of nodularit y and benign calcifications. No skin thickening or abnormal axillary lymph nodes are seen. There has been no significant change from prior exams. IMPRESSION: BI-RADS Category 2 - Negative Mammogram with benign findings. Yearly screening mammography is recomm ended. Breast Density - Category B, scattered fibroglandular densities. A negative radiographic report should not delay biopsy if a dominant or clinically suspicious mass is present. Up to ten percent of cancers are not identified on mammography. A negative report may reinforce clinical impression. Adenosis and dense breasts may obscure an underlying neoplasm. False positive reports average 6 to 10%. Patient will receive a letter notifying them of these results.
== END ==
PROVIDERS: PCP Nurse Practitioner Family; Visit Provider Nurse Practitioner Family
DX: Z12.31 Encounter for screening mammogram for malignant neoplasm of breast (principal)
CPT/HCPCS: 77063; 77067

== ENCOUNTER → 2023-10-15 10:36 | Outpatient (BNVA) | payer MEDICARE, SELFPAY | PROVIDERS: PCP Nurse Practitioner Family; Referring Provider Nurse Practitioner Family; Visit Provider Psychiatry & Neurology Neurology | DX: R27.0 Ataxia, unspecified (principal) | CPT/HCPCS: 99213 ==

== ENCOUNTER → 2023-10-25 00:46 | Outpatient (CLI) | payer MEDICARE, SELFPAY ==
--- NOTE | 2023-10-25 07:00 | DI.MRI_ITS ---
Exam(s) MR BRAIN WO EXAM: MR BRAIN WO CLINICAL HISTORY: acute ataxia,impaired gait,r26.9,r27.0 TECHNIQUE: Multiplanar multisequence MRI of the brain was performed. COMPARISON: MR MR BRAIN WO/W from 05/05/2021 FINDINGS: VENTRICLES AND EXTRA AXIAL SPACES: Normal in size and morphology for the patient's age. MIDLINE SHIFT: None. CEREBRAL PARENCHYMA: No focus of restricted diffusion to suggest acute infarct. No space-occupying le lincoln identified. There are few foci of hyperintense signal seen in the white matter on the FLAIR and T2 weighted images most consistent with chronic microvascular ischemic disease. HEMORRHAGE: None. BRAINSTEM/CEREBELLUM: Normal. CALVARIUM: Normal. VISUALIZED PARANASAL SINUSES/MASTOIDS:Clear. [place]: Normal flow void. PITUITARY GLAND: Unremarkable. OTHER FINDINGS: There does appear to be some central spinal canal stenosis at C3-C4 with mild viviana lincoln of the spinal cord. There is normal signal in the spinal cord at that level. IMPRESSION: 1. No evidence of an acute infarct. 2. Findings suggestive of small vessel ischemic disease. 3. Mild apparent central spinal canal stenosis seen at the C3-4 level. MRI of the cervical spine stanislaw uld be considered for further evaluation. Unexpected findings DATA REPOSITORY:
== END ==
PROVIDERS: PCP Nurse Practitioner Family; Visit Provider Psychiatry & Neurology Neurology
DX: R26.9 Unspecified abnormalities of gait and mobility (principal); R27.0 Ataxia, unspecified
CPT/HCPCS: 70551

== ENCOUNTER → 2023-11-13 01:12 | Outpatient (CLI) | payer MEDICARE, SELFPAY ==
--- NOTE | 2023-11-13 07:00 | DI.MRI_ITS ---
Exam(s) MR CERVICAL SPINE WO EXAM: MR CERVICAL SPINE WO CLINICAL HISTORY: cervical stenosis,ataxia,r27.0 TECHNIQUE: Multiplanar multisequence MRI of the cervical spine was performed without intravenous con trast. COMPARISON: No exams were available for comparison FINDINGS: CERVICOMEDULLARY JUNCTION: Intact with no evidence of cerebellar tonsillar ectopia. No obvious abnor mality of the odontoid process. No evidence of Chiari 1 malformation. CERVICAL SPINAL CORD: There is no abnormal signal in the cervical spinal cord and no evidence of foca l cord atrophy nor focal cord swelling. OSSEOUS:There are no cervical fractures evident. No significant osseous lesions in the cervical vert ebrae. Mildly exaggerated cervical spinal curvature evident. INDIVIDUAL LEVELS: C2-3: No disc herniation nor central canal stenosis. Mild bilateral facet joint degenerative changes . No significant foraminal stenosis at this level. C3-4: Decreased disc height.There is a small relatively focal central subligamentous disc protrusion which effaces the anterior thecal sac and contacts the spinal cord. Mild central canal stenosis (7 m m AP canal measurement). There is no abnormal signal in the cord at this level. There is degenerati ve change in the right facet joint at this level; less so in the left facet joint. Mild right-sided foraminal stenosis. No foraminal stenosis on the opposite side. C4-5: Decreased disc height. There is mild annular bulging and posterior bony ridging without a dist inct focal disc herniation. Nevertheless, there is effacement of the anterior thecal sac and there i s an element of central spinal canal stenosis with AP canal measurement of 6.8 mm at this level. The re is no abnormal signal in the cord at this level. There is moderate degenerative change in both fa cet joints. Minimal foraminal stenosis on both sides evident. C5-6: This level exhibits mild disc space narrowing. There is no distinct disc herniation but there is mild annular bulging and there are bilateral Luschka joint osteophytes evident at this level. The re is mild-moderate central canal stenosis with AP canal measurement 7 mm at this level. There is ef facement of the anterior thecal sac but not the cord. There is no abnormal signal in the spinal cord at this level. Facet joints at this level to exhibit degenerative change on the right side; less so on the left side. Mild bilateral foraminal stenosis. C6-7: This level exhibits mild disc space narrowing. Posteriorly there is symmetrical mild annular b ulging without a distinct focal disc herniation. Central canal dimensions are lower normal. There a re mild degenerative changes in the facet joints at this level. Mild bilateral foraminal stenosis. C7-T1: No disc herniation nor central canal stenosis. No facet arthropathy.No foraminal stenosis. IMPRESSION: 1. There is an element of central spinal canal stenosis at C3-4, C4-5, and C5-6 levels, as described above. 2. There is a small relatively focal central subligamentous disc protrusion C3-4 level which effaces the anterior thecal sac and contacts the spinal cord at this level but is not associated with abnorma l signal within the spinal cord. There is mild right-sided foraminal stenosis at this level. 3. Bilateral Luschka joint osteophytes are evident at C5-6 level with mild bilateral foraminal stenos is at this level. Other findings as above. DATA REPOSITORY:
== END ==
PROVIDERS: PCP Nurse Practitioner Family; Visit Provider Psychiatry & Neurology Neurology
DX: R27.0 Ataxia, unspecified (principal); M48.02 Spinal stenosis, cervical region
CPT/HCPCS: 72141

== ENCOUNTER → 2023-11-26 15:06 | Outpatient (BNVA) | payer MEDICARE, SELFPAY | PROVIDERS: PCP Nurse Practitioner Family; Visit Provider Psychiatry & Neurology Neurology | DX: M48.02 Spinal stenosis, cervical region (principal); G25.2 Other specified forms of tremor; R26.9 Unspecified abnormalities of gait and mobility | CPT/HCPCS: 99214 ==

== ENCOUNTER → 2024-01-28 10:45 | Outpatient (BNVA) | payer MEDICARE, SELFPAY | PROVIDERS: PCP Nurse Practitioner Family; Referring Provider Nurse Practitioner Family; Visit Provider Psychiatry & Neurology Neurology | DX: G25.2 Other specified forms of tremor (principal); M48.02 Spinal stenosis, cervical region; F44.4 Conversion disorder with motor symptom or deficit; R27.0 Ataxia, unspecified | CPT/HCPCS: 99214 ==

== ENCOUNTER 2024-03-25 00:48 | Outpatient (CLI) | payer MEDICARE, SELFPAY ==
--- NOTE | 2024-03-25 07:30 | DI.US_ITS ---
Exam(s) US ABDOMEN RENAL EXAM: US ABDOMEN RENAL CLINICAL HISTORY: ? renal cyst on recent lumbar MRI at [facility],[place],n28.1,k80.20 TECHNIQUE: Ultrasound abdomen performed using standard protocol. COMPARISON: CT CT ABDOMEN PELVIS W from 02/08/2022 FINDINGS: ABDOMINAL AORTA AND IVC: Visualized portions normal caliber. PANCREAS: Normal where visualized. LIVER: There is diffuse increased echogenicity of the liver consistent with fatty infiltration. Hepa topetal flow in the Portal Vein. The liver measures 18.6cm long.No hepatic mass is seen sonographical ly. GALLBLADDER: There are several gallstones present. The largest measures 1.9 cm. No evidence of wall thickening. No pericholecystic fluid identified. BILIARY SYSTEM: Common bile duct measures < 7 mm. No intrahepatic biliary ductal dilation. SHEPPARD'S SIGN: Negative. SPLEEN: Not enlarged. ASCITES: None seen. Renal size in cm: Right: 11.1. Left: 11. Echogenicity: Normal. Hydronephrosis: No. Cyst or mass: There are cysts again seen in the superior pole of the left kidney. The larger measure s 2.5 cm. No follow-up is recommended. Nephrolithiasis: No. Other findings: None. Bladder:The patient was not adequately prepped and the urinary bladder was empty. Ureteral jets: Right: Cannot be visualized on this examination. Left: Cannot be visualized on this examination. Prevoid vol:The bladder was empty. Renal color flow: Symmetric and within normal limits. IMPRESSION: 1. Hepatic steatosis and mild hepatomegaly. 2. Cholelithiasis. No sonographic evidence of biliary ductal dilatation or acute cholecystitis. 3. No evidence of nephrolithiasis or hydronephrosis. 4. The urinary bladder could not be evaluated as the patient was not adequately prepped and the bladd er was empty. DATA REPOSITORY:
== END 2024-03-25 01:08 ==
LOC: DI 00:48
PROVIDERS: PCP Nurse Practitioner Family; Visit Provider Nurse Practitioner Family
DX: K80.20 Calculus of gallbladder without cholecystitis without obstruction
CPT/HCPCS: 76770; 76700

== ENCOUNTER 2024-03-31 13:06 | Outpatient (CLI) | payer MEDICARE, SELFPAY ==
[2024-03-31 10:04] LABS: Hemoglobin A1C 6.1 % (<5.7)
[2024-03-31 10:11] LABS: Anion Gap 10.7 mmol/L (3-11); BUN 15 mg/dL (7-18); CO2 27.3 mmol/L (21.0-32.0); CREATININE 0.8 mg/dL (0.55-1.02); Calcium 9.1 mg/dL (8.5-10.1); Calculated LDL 135 mg/dL (<100); Chloride 104 mmol/L (98-107); Cholesterol 252 mg/dL (<200); Estimated GFR 76.79 (mL/min/1.73m2); Glucose 99 mg/dL (74-106); HDL Cholesterol 63 mg/dL (40-60); Potassium 3.8 mmol/L (3.5-5.1); Sodium 142 mmol/L (136-145); Triglyceride 271 mg/dL (<150)
== END 2024-03-31 13:07 | disposition home or self-care (01) ==
LOC: LBO 13:07
PROVIDERS: PCP Nurse Practitioner Family; Visit Provider Nurse Practitioner Family
DX: I10 Essential (primary) hypertension (principal); Z00.00 Encounter for general adult medical examination without abnormal findings; F41.1 Generalized anxiety disorder; F44.4 Conversion disorder with motor symptom or deficit; E78.5 Hyperlipidemia, unspecified; R73.03 Prediabetes; M81.0 Age-related osteoporosis without current pathological fracture; H81.10 Benign paroxysmal vertigo, unspecified ear; R27.0 Ataxia, unspecified
CPT/HCPCS: 36415; 80048; 80061; 83036

== ENCOUNTER 2024-05-12 21:32 | Inpatient (IN) | payer MEDICARE, SELFPAY ==
[2024-05-12] VITALS (80 sets, daily range): BP systolic 150–205; BP diastolic 84–150; PULSE 106–122; RESP 14–36; O2SAT 89–96
--- NOTE | 2024-05-12 21:30 | RT.EKG_ITS ---
APPROVED REPORT Exam: Resting ECG Reason for Exam: Tachy Patient Location: E HR:116 bpm ECG Measurements Heart Rate [address] 154 P 27 QRSd 81 QRS -25 QT 346 T 132 QTc 480 Conclusion Sinus tachycardia...rate> 99 Inferior infarct, old...Q >35mS, II III aVF Consider anterior infarct...Q >30mS in V2-V5 Nonspecific T abnormalities, lateral leads...T <-0.10mV, I aVL V5 V6 no ST segment or T wave abnormalities to suggest occlusive OR
--- NOTE | 2024-05-12 21:45 | DI.CT_ITS ---
Exam(s) CT ABDOMEN PELVIS CTA EXAM: CT ABDOMEN PELVIS CTA CLINICAL HISTORY: GI bleeding with abd pain. TECHNIQUE: Imaging Protocol: Axial CT angiography was performed with multi-slice acquisition and m ulti-planar and/or 3D reconstructions. CONTRAST MATERIAL: Intravenous: Omnipaque 350 Contrast volume:100 mL Oral: no COMPARISON: CT CT ABDOMEN PELVIS W from 02/08/2022 FINDINGS: Vascular Structures: Minimal atherosclerotic changes. Celiac [place]:No evidence of stenosis. SMA: No evidence of stenosis. Renal Arteries: No evidence of stenosis. There is a single renal artery perfusing each kidney. Aorta: No aneurysm. No dissection. No significant stenosis. Iliac Arteries: No evidence of stenosis. Common Femoral Arteries: No evidence of stenosis. Soft Tissues:Unremarkable. Lung bases:No acute findings. Liver: Normal size. Hepatic steatosis. No measurable mass. Gallbladder and biliary tract: Cholelithiasis. No gallbladder wall thickening. No biliary dilation. Pancreas: Normal density, no abnormal calcifications or inflammatory process. Spleen: Normal. Kidneys: Normal size, contour and axis. No obstructive uropathy. No suspicious masses seen. Stable r enal cysts. No evidence of calculi. Adrenal glands: No masses seen. Bladder: Mild cystocele. No gross wall thickening. No evidence of calculi. No evidence of mass. Bowel: Sigmoid diverticulosis. No evidence of diverticulitis. No obstruction. Wall thickening of the descending and proximal sigmoid colon consistent with colitis. No evidence of active contrast extrava sation. Peritoneal cavity: No ascites. No focal collection. No mesenteric inflammatory response. Bones: No acute findings. Lymph nodes: Within normal limits. Reproductive: Hysterectomy. IMPRESSION: Findings consistent with colitis of the descending and proximal sigmoid colon. No visible active GI b leed. No evidence of vascular occlusion or stenosis. Minimal atherosclerotic changes. RADIATION DOSE DELIVERED: 1,166.84mGy.cm Total DLP DATA REPOSITORY: All CT scans at this facility are submitted to the National Radiology Data Registry (NRDR) Dose Index Registry (DIR) with the [employer] (ACR). RADIATION OPTIMIZATION: All CT scans at this facility use at least one of these dose optimization te chniques: automated exposure control; mA and/or kV adjustment per patient size (includes targeted exa ms where dose is matched to clinical indication); or iterative reconstruction.
[2024-05-12 21:49] LABS: Abs Immature Grans 0.05 10^3/uL (0.0-0.06); Absolute Basophil Count 0.03 10^3/uL (0.0-0.2); Absolute Eosinophil Count 0.04 10^3/uL (0.0-0.7); Absolute Lymphocyte Count 1.78 10^3/uL (1.2-3.4); Absolute Monocyte Count 0.71 10^3/uL (0.1-0.8); Basophils % 0.2 %; Eosinophils % 0.3 %; HGB 12.9 g/dL (11.2-15.7); Immature Grans % 0.4 %; MCH 29.9 pg (27.0-33.0); MCHC 33.1 % (32.0-36.0); MCV 91 fL (80-95); Monocytes % 5.2 %; Neutrophils % 80.9 %; Platelet Count 371 10^3/uL (130-400); RBC 4.31 10^6/uL (3.93-5.22); RDW 13.9 % (11.7-14.6); RDW-SD 46.5 fL; WBC 13.73 10^3/uL (4.4-10.8)
[2024-05-12 21:50] LABS: Absolute Neutrophil Count 11.11 10^3/uL (1.2-6.7)
[2024-05-12 21:51] LABS: Lactate 3.3 mmol/L (0.6-1.4)
[2024-05-12] MEDS: Pantoprazole 40 MG VIAL IVP (21:58)
[2024-05-12 22:00] LABS: Lipase 19 U/L (<78)
[2024-05-12] MEDS: Normal Saline 1,000 ML 1000 ML IV (22:01)
[2024-05-12 22:08] LABS: Troponin I 7 ng/L (<or=51)
[2024-05-12 22:10] LABS: Prothrombin Time 10.1 sec (9.1-11.1)
[2024-05-12 22:24] LABS: ALT 13 U/L (14-59); AST 19 U/L (15-37); Albumin 3.1 g/dL (3.4-5.0); Alkaline Phosphatase 103 U/L (46-116); Anion Gap 9.8 mmol/L (3-11); BUN 22 mg/dL (7-18); Bilirubin, Total 0.23 mg/dL (0.2-1.0); CO2 28.2 mmol/L (21.0-32.0); CREATININE 0.9 mg/dL (0.55-1.02); Calcium 8.7 mg/dL (8.5-10.1); Chloride 103 mmol/L (98-107); Estimated GFR 66.67 (mL/min/1.73m2); Glucose 109 mg/dL (74-106); Potassium 3.3 mmol/L (3.5-5.1); Sodium 141 mmol/L (136-145); Total Protein 7.4 g/dL (6.4-8.2)
[2024-05-12 22:34] LABS: Creatine Kinase 44 U/L (26-192); LDH 169 U/L (81-234)
[2024-05-12] MEDS: MORPHine 10 MG/ML VIAL 2 MG IVP (22:47)
--- NOTE | 2024-05-12 23:00 | W.ED.GENAD ---
Discharge Plan Disposition Patient Disposition: Admit to [facility] Condition: Good Discharge Details Clinical Impression: Colitis, Acute GI bleeding Admit Date/Time: 05/13/24 00:38 Admit Provider: Vicente Matt Attending Provider: Vicente Matt Primary Care Provider: Suzy Montejo ED Provider: Sabine Franklin Discharge Data Discharge Date/Time-TO BE ENTERED AT DEPARTURE: 05/13/24 05:07 HPI <LAMIN Rush - Last Filed: 05/13/24 19:15> General Date/Time Provider Initiated Documentation: 05/12/24 21:39. 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 She states that her stool was loose she has had 3 episodes of bloody stool since that time. She has never had a colonoscopy and denies history of similar symptoms in the past. She denies any weakness or dizziness. She denies any chest pain or shortness of breath. She states that the pain in her abdomen is predominantly in the left lower quadrant and cramping. She denies history of similar symptoms in the past she describes the stool as being bright red blood. Related Data Home Medications ?Medication ?Instructions ?Recorded ?Confirmed ascorbic acid (vitamin C) 500 mg 500 mg PO DAILY 05/30/13 05/12/24 tablet cyanocobalamin (vitamin B-12) 1,000 mcg PO DAILY 07/04/16 05/12/24 1,000 mcg tablet (Vitamin B-12) ibuprofen 600 mg tablet 600 mg PO Q8H PRN pain #14 tabs 04/07/18 05/12/24 cholecalciferol (vitamin D3) 50 50 mcg PO DAILY 09/21/21 05/12/24 mcg (2,000 unit) tablet ferrous sulfate 325 mg (65 mg 325 mg PO DAILY 09/21/21 05/12/24 iron) tablet (Feosol) zoledronic acid 5 mg/100 mL in See Rx Instructions IV ONCE #100 mL 01/17/22 05/12/24 mannitol 5 %-water intravenous piggybck cetirizine 10 mg tablet (Zyrtec) 10 mg PO DAILY PRN 01/17/23 05/12/24 inhalational spacing device #1 ea 04/17/23 05/12/24 (Aerochamber MV spacer) hydrochlorothiazide 25 mg tablet 25 mg PO DAILY #90 tabs 08/08/23 05/12/24 metoprolol succinate 50 mg 50 mg PO DAILY #90 tabs 08/08/23 05/12/24 tablet,extended release 24 hr pravastatin 40 mg tablet 40 mg PO DAILY #90 tabs 08/08/23 05/12/24 mirtazapine 15 mg tablet 15 mg PO DAILY #90 tabs 11/05/23 05/12/24 carbidopa 25 mg-levodopa 100 mg 1 tab PO BID 04/02/24 05/12/24 tablet (Sinemet) clonazepam 0.5 mg tablet 0.5 mg PO BID #60 tabs 04/14/24 05/12/24 Previous Rx's ?Medication ?Instructions ?Recorded ibuprofen 600 mg tablet 600 mg PO Q8H PRN pain #14 tabs 04/07/18 zoledronic acid 5 mg/100 mL in See Rx Instructions IV ONCE #100 mL 01/17/22 mannitol 5 %-water intravenous piggybck inhalational spacing device #1 ea 04/17/23 (Aerochamber MV spacer) hydrochlorothiazide 25 mg tablet 25 mg PO DAILY #90 tabs 08/08/23 metoprolol succinate 50 mg 50 mg PO DAILY #90 tabs 08/08/23 tablet,extended release 24 hr pravastatin 40 mg tablet 40 mg PO DAILY #90 tabs 08/08/23 mirtazapine 15 mg tablet 15 mg PO DAILY #90 tabs 11/05/23 clonazepam 0.5 mg tablet 0.5 mg PO BID #60 tabs 04/14/24 Allergies Allergy/AdvReac Type Severity Reaction Status Date / Time No Known Allergies Allergy Verified 05/12/24 21:47 General Stated Complaint: GI Bleed TON: 2 Exam <LAMIN Rush - Last Filed: 05/13/24 19:15> Narrative Exam Narrative: Alert and oriented 73-year-old female in no acute distress, diffuse abdominal tenderness predominantly in left lower quadrant without rebound or guarding, no CVA tenderness, distal pulses intact, alert and oriented x 4, bright red bloody stool noted around rectal vault, no evidence of vaginal bleeding, sinus tachycardia Course <LAMIN Rush - Last Filed: 05/13/24 19:15> Vital Signs Vital signs: Vital Signs Pulse 122 H 05/12/24 21:35 Respiratory Rate 24 05/12/24 21:35 Blood Pressure 205/88 H 05/12/24 21:35 Pulse Oximetry 92 05/12/24 21:35 Pulse 118 H 05/12/24 21:43 Respiratory Rate 24 05/12/24 21:35 Blood Pressure 205/88 H 05/12/24 21:35 Blood Pressure Position Sitting 05/12/24 21:35 Pulse Oximetry 92 05/12/24 21:35 Oxygen Delivery Method Room Air 05/12/24 21:35 Oxygen Flow Rate 0 05/12/24 21:35 Pain Level 6 05/12/24 22:47 Lab/Test Results Lab/Test Results: Laboratory Tests Range/Units 05/12/24 21:40 WBC (4.4-10.8) 10^3/uL 13.73 H RBC (3.93-5.22) 10^6/uL 4.31 Hgb (11.2-15.7) g/dL 12.9 Hct (36.0-46.0) % 39.0 MCV (80-95) fL 91 MCH (27.0-33.0) pg 29.9 MCHC (32.0-36.0) % 33.1 RDW (11.7-14.6) % 13.9 Plt Count (130-400) 10^3/uL 371 MPV (8.0-11.0) fL 9.0 Immature Gran % % 0.4 Neutrophils % % 80.9 Lymphocytes % % 13.0 Monocytes % % 5.2 Eosinophils % % 0.3 Basophils % % 0.2 Nucleated RBC % (0.0-0.3) % 0.0 Absolute Neutrophils (1.2-6.7) 10^3/uL 11.11 H Absolute Lymphocytes (1.2-3.4) 10^3/uL 1.78 Absolute Monocytes (0.1-0.8) 10^3/uL 0.71 Absolute Eosinophils (0.0-0.7) 10^3/uL 0.04 Absolute Basophils (0.0-0.2) 10^3/uL 0.03 PT (9.1-11.1) sec 10.1 INR (0.9-1.1) 1.0 VBG Lactate (0.6-1.4) mmol/L 3.3 H* Sodium (136-145) mmol/L 141 Potassium (3.5-5.1) mmol/L 3.3 L Chloride (98-107) mmol/L 103 Carbon Dioxide (21.0-32.0) mmol/L 28.2 Anion Gap (3-11) mmol/L 9.8 BUN (7-18) mg/dL 22 H Creatinine (0.55-1.02) mg/dL 0.9 Est GFR (CKD-EPI 2020) (mL/min/1.73m2) 66.67 Glucose (74-106) mg/dL 109 H Calcium (8.5-10.1) mg/dL 8.7 Total Bilirubin (0.2-1.0) mg/dL 0.23 AST (15-37) U/L 19 ALT (14-59) U/L 13 L Alkaline Phosphatase (46-116) U/L 103 Lactate Dehydrogenase (81-234) U/L 169 Creatine Kinase (26-192) U/L 44 Troponin I (<or=51) ng/L 7 Total Protein (6.4-8.2) g/dL 7.4 Albumin (3.4-5.0) g/dL 3.1 L Lipase (<78) U/L 19 ABO/Rh O Positive Antibody Screen NEGATIVE Medical Decision Making <LAMIN Rush - Last Filed: 05/13/24 19:15> This 73-year-old female presents with bright red blood in stools with abdominal pain which started at 12:00 today. Denies any recent nonsteroidal use or anticoagulation. Denies history of similar symptoms or prior colonoscopy in the past. Denies any alcohol consumption. Denies any nausea or vomiting. Denies chest pain or shortness of visible bright red noted on the exam and rectum. Will order CTA of abdomen and pelvis to evaluate for mesenteric ischemia versus bleeding. Will give 1 L of fluid secondary to sinus tachycardia. Will recheck lactate which is 3.3. Will give 2 mg of morphine for pain. Mild leukocytosis at 13,000. Mild hypokalemia at 3.3. No indication for transfusion at this time, hemoglobin of 12.9, will recheck if persistent tachycardia and bleeding. No additional episodes of bloody stool noted here. Patient has had some reported heartburn sensation, she has had this in the past, I did give Protonix. She denies any history of black tarry stools. At this time patient is pending CTA and will likely require admission for bright red blood in stools. Differentials include ischemic colitis, mesenteric ischemia, diverticular bleeding. Will hold on antibiotics pending CT scan. Quality:[facility] Health Related Social Needs: Health related social needs problems related to housing/economic circumstances (Z59.89) <Douglas Adamson, DO - Last Filed: 05/13/24 01:37> This 73-year-old female presents with bright red blood in stools with abdominal pain which started at 12:00 today. Denies any recent nonsteroidal use or anticoagulation. Denies history of similar symptoms or prior colonoscopy in the past. Denies any alcohol consumption. Denies any nausea or vomiting. Denies chest pain or shortness of visible bright red noted on the exam and rectum. Will order CTA of abdomen and pelvis to evaluate for mesenteric ischemia versus bleeding. Will give 1 L of fluid secondary to sinus tachycardia. Will recheck lactate which is 3.3. Will give 2 mg of morphine for pain. Mild leukocytosis at 13,000. Mild hypokalemia at 3.3. No indication for transfusion at this time, hemoglobin of 12.9, will recheck if persistent tachycardia and bleeding. No additional episodes of bloody stool noted here. Patient has had some reported heartburn sensation, she has had this in the past, I did give Protonix. She denies any history of black tarry stools. At this time patient is pending CTA and will likely require admission for bright red blood in stools. Differentials include ischemic colitis, mesenteric ischemia, diverticular bleeding. Will hold on antibiotics pending CT scan. Dr. Adamson's documentation Patient was signed out to me pending CT scan. CT scan shows evidence of colitis without diverticulitis. Repeat hemoglobin is stable at 12.4 and she has had no further bowel movements here. Still pending C. difficile. Cipro and Flagyl were started. Heart rate has notably improved initially from the 120s now down to the 90s. Lactate is trending towards improvement initially greater than 3, now 2.9. Patient's pain is improved. With the patient's age, risk factors, evidence of colitis, and bleeding, I do feel that admission, antibiotics is reasonable. Discussed the case with the hospitalist Dr. Matt, he agrees with the assessment and plan. Hospitalist did request that we let surgery know the case for consult. Discussed the case with on-call surgeon Dr. Clark. I have extensively reviewed the treatment plan with the patient. I have addressed all patient concerns at this time. I have also discussed the plan with the admitting physician and they agree with the current assessment and plan and have agreed to assume responsibility for the patient. All parties demonstrate verbal understanding and agreement with our assessment and plan at this time. The documentation in this chart was dictated using Laser[employer] dictation software. Please excuse any dictation errors. FINDINGS: Lungs: Normal. No consolidation. Mild subpleural scarring or subsegmental atelectasis in the lung bases noted. Aorta: No aortic aneurysm. No aortic dissection. Celiac trunk and mesenteric arteries: No occlusion or significant stenosis. Renal arteries: No occlusion or significant stenosis. Right iliac arteries: No occlusion or significant stenosis. Left iliac arteries: No occlusion or significant stenosis. Liver: Fatty infiltration of the liver is visualized. Gallbladder and biliary ducts: Multiple gallstones are present. No pericholecystic inflammatory changes to suggest cholecystitis. Pancreas: Unremarkable. No mass. No ductal dilation. Spleen: Unremarkable. No splenomegaly. Adrenal glands: Unremarkable. No mass. Kidneys and ureters: Unremarkable. No solid mass. No hydronephrosis. Simple and Bosniak type 2 left renal cysts demonstrated, measuring up to 2.2 cm, and these require no further follow-up. Stomach and bowel: Acute infectious or inflammatory colitis involving the descending and sigmoid colon demonstrated, and this is better visualized on portal venous phase images. Scattered colonic diverticula are demonstrated, without direct CT evidence for acute diverticulitis. No evidence of active contrast extravasation throughout the GI tract. Appendix: No evidence of appendicitis. Intraperitoneal space: Unremarkable. No free air. No significant fluid collection. Lymph nodes: Unremarkable. No enlarged lymph nodes. Urinary bladder: Unremarkable. No mass. Reproductive: Unremarkable as visualized. Bones/joints: Osseous structures are grossly intact. No suspicious lytic or sclerotic osseous lesion. Soft tissues: Unremarkable. IMPRESSION: Acute infectious or inflammatory colitis involving the descending and sigmoid colon demonstrated, and this is better visualized on portal venous phase images. Thank you for allowing us to participate in the care of your patient. Dictated and Authenticated by: Rodolfo Hamilton MD 05/13/2024 12:18 AM Eastern Time ([place] & [place]) [facility] <LAMIN Rsuh - Last Filed: 05/13/24 19:15> All Active Problems (Updated 05/13/24 @ 05:47 by Vicente Matt) B12 deficiency (Chronic) Iron deficiency (Chronic) Acute GI bleeding (Acute) Colitis (Acute) Astasia-abasia (Acute) Orthostatic tremor (Acute) Cervical stenosis of spinal canal (Acute) Ataxia (Acute) Impaired gait (Acute) Generalized anxiety disorder (Chronic) Periodic limb movement disorder (PLMD) (Chronic) Essential hypertension (Chronic) Metabolic dysfunction-associated steatotic liver disease (MASLD) (Chronic) Hyperlipidemia (Chronic) Prediabetes (Chronic) Osteoporosis (Chronic) Bisphosphonates started 2018 Medical History (Updated 05/13/24 @ 05:47 by Vicente Matt) Colitis (~01/2022) Surgical History S/P vaginal hysterectomy H/O bladder repair surgery Family History Mother , late 80s of dementia Essential hypertension Alzheimers disease Hyperlipidemia Father , in his late 80s Liver cancer Brother No problems noted. Brother No problems noted. Son No problems noted. Son No problems noted. Daughter No problems noted. Maternal Grandfather , age 86 Lung cancer Maternal Grandmother , age 61 Brain aneurysm Paternal Grandfather , age 53 Alzheimers disease Paternal Grandmother , age 98 Alzheimers disease Social History Smoking/Tobacco Use Status: Never Second Hand Exposure: No Smoking risk assessment performed?: Yes Alcohol Intake: former Drug use: Never Substance use type: does not use Adopted: No Caregiver/Support person: No Household members: none Housing: apartment Communication Needs: None Education Level: high school Details: GED Do you need help understanding health information?: Never current occupation: [employer] Pets and animals: No Sexually active: No Do you think of yourself as: straight/heterosexual Current gender identity: female What is your relationship status?: How often do you talk on the phone with friends or family?: twice per week How often do you get together with friends or relatives?: once per week How often do you attend oriental orthodox or episcopalian services?: decline to answer Do you belong to any clubs or organized social groups?: decline to answer Panel score (0-1 are the most socially isolated patients): 1 What type of physical activity do you participate in: other Details: 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
[2024-05-12 23:09] LABS: Procalcitonin < 0.10 ng/mL
[2024-05-12] MEDS: Omnipaque 350 MG/ML 100 ML BTL IJ (23:30)
[2024-05-12] MEDS: Normal Saline - Diluent 50 ML VIAL IJ (23:31)
[2024-05-12] MEDS: Normal Saline Flush 10 ML SYR IVP (23:31)
[2024-05-13] VITALS (80 sets, daily range): BP systolic 140–166; BP diastolic 77–98; PULSE 73–100; RESP 10–24; TEMP 36.2–36.9; O2SAT 93–98
[2024-05-13 00:03] LABS: Troponin I 9 ng/L (<or=51)
--- NOTE | 2024-05-13 00:19 | DI.VRAD_ITS ---
PROCEDURE INFORMATION: Exam: CTA Abdomen and Pelvis Without And With Contrast Exam date and time: 05/12/2024 11:20 PM Age: 73 years old Clinical indication: Abdominal pain; Generalized; Prior surgery; Surgery date: 6+ months; Surgery type: Hysterectomy, bladder repair; Patient HX: Gi bleeding with abd pain TECHNIQUE: Imaging protocol: Computed tomographic angiography of the abdomen and pelvis without and with contrast. Exam focused on the arteries. 3D rendering (Not supervised by radiologist): MIP and/or 3D reconstructed images were created by the technologist. Radiation optimization: All CT scans at this facility use at least one of these dose optimization techniques: automated exposure control; mA and/or kV adjustment per patient size (includes targeted exams where dose is matched to clinical indication); or iterative reconstruction. Contrast material: OMNIPAQUE 350; Contrast volume: 100 ml; Contrast route: INTRAVENOUS (IV); COMPARISON: CT ABDOMEN PELVIS W 02/08/2022 2:07 PM FINDINGS: Lungs: Normal. No consolidation. Mild subpleural scarring or subsegmental atelectasis in the lung bases noted. Aorta: No aortic aneurysm. No aortic dissection. Celiac trunk and mesenteric arteries: No occlusion or significant stenosis. Renal arteries: No occlusion or significant stenosis. Right iliac arteries: No occlusion or significant stenosis. Left iliac arteries: No occlusion or significant stenosis. Liver: Fatty infiltration of the liver is visualized. Gallbladder and biliary ducts: Multiple gallstones are present. No pericholecystic inflammatory changes to suggest cholecystitis. Pancreas: Unremarkable. No mass. No ductal dilation. Spleen: Unremarkable. No splenomegaly. Adrenal glands: Unremarkable. No mass. Kidneys and ureters: Unremarkable. No solid mass. No hydronephrosis. Simple and Bosniak type 2 left renal cysts demonstrated, measuring up to 2.2 cm, and these require no further follow-up. Stomach and bowel: Acute infectious or inflammatory colitis involving the descending and sigmoid colon demonstrated, and this is better visualized on portal venous phase images. Scattered colonic diverticula are demonstrated, without direct CT evidence for acute diverticulitis. No evidence of active contrast extravasation throughout the GI tract. Appendix: No evidence of appendicitis. Intraperitoneal space: Unremarkable. No free air. No significant fluid collection. Lymph nodes: Unremarkable. No enlarged lymph nodes. Urinary bladder: Unremarkable. No mass. Reproductive: Unremarkable as visualized. Bones/joints: Osseous structures are grossly intact. No suspicious lytic or sclerotic osseous lesion. Soft tissues: Unremarkable. IMPRESSION: Acute infectious or inflammatory colitis involving the descending and sigmoid colon demonstrated, and this is better visualized on portal venous phase images. Dictated and Authenticated by: Rodolfo Hamilton MD. Ordering:ERASMO Regalado MD
[2024-05-13 01:04] LABS: Lactate 2.9 mmol/L (0.6-1.4)
[2024-05-13 01:07] LABS: HCT 37.9 % (36.0-46.0); HGB 12.4 g/dL (11.2-15.7)
[2024-05-13] MEDS: metroNIDAZOLE 500 MG/100 ML BAG 100 MG IVPB ×4 (01:15→19:49)
[2024-05-13] MEDS: CIPROFLOXACIN 400 MG/200 ML BAG 200 MG IVPB ×2 (01:15→12:36)
--- NOTE | 2024-05-13 04:01 | W.PC.ACHO ---
Registration Status: Primary Language: Preferred Language: ED Information & Data Chief Complaint GI Bleed 05/12/24 23:08 Triage Note Pt reports spotting of 05/12/24 21:35 bright red blood per rectum ~1200 today. Started after some cramping and a BM. Reports BMs looks normal. Typically goes 2-3xs daily. Increasing amount of red bloody/mucus output [place] gradually throughout day w/ low transverse abd discomfort &cramping. Denies other complaints like nausea and dizziness. Medical / Surgical History (Last Reviewed 01/28/24 @ 11:25 by Sarah Ferguson MD) Colitis (~01/2022) (Last Reviewed 01/28/24 @ 11:25 by Sarah Ferguson MD) S/P vaginal hysterectomy H/O bladder repair surgery Most Recent Vital Signs Pulse 95 H 05/13/24 02:08 Respiratory Rate 19 05/13/24 02:08 Respiratory Effort Normal, Non-Labored 05/13/24 01:23 Respiratory Depth Normal 05/13/24 01:23 Respiratory Pattern Normal 05/13/24 01:23 Blood Pressure 163/98 H 05/13/24 02:08 Blood Pressure Position Sitting 05/12/24 21:35 Pulse Oximetry 98 05/13/24 02:08 Oxygen Delivery Method Nasal Cannula 05/13/24 01:23 Oxygen Flow Rate 2 05/13/24 01:23 Pain Level 3 05/13/24 02:08 Allergies No Known Allergies Allergy (Verified 05/12/24 21:47) Precautions Isolation Standard precaution 05/12/24 21:41 Active Medications Generic Name Dose Route Start Last Admin Trade Name Diegoq PRN Reason Stop Dose Admin Iohexol 100 ml 05/12/24 23:30 05/12/24 23:30 Omnipaque 350 Mg/Ml 100 Ml Btl IJ 06/11/24 23:59 100 ml DIRECTED MICHELLE Administration Sodium Chloride 0 ml 05/12/24 21:40 05/12/24 23:31 Normal Saline Flush 10 Ml Syr IVP 10 ml PRN PRN Administration Sodium Chloride 50 ml 05/12/24 23:45 05/12/24 23:31 Normal Saline - Diluent 50 Ml Vial IJ 50 ml .FOR DI USE MICHELLE Administration IV IV Catheter Type [Left Saline Lock Antecubital] IV Catheter Type [Left Forearm Saline Lock ] IV Catheter Gauge [Left 18 Antecubital] IV Catheter Gauge [Left 18 Forearm] Diagnostics 05/13/24 05/13/24 05/12/24 Range/Units 01:02 00:56 23:41 WBC (4.4-10.8) 10^3/uL RBC (3.93-5.22) 10^6/uL Hgb 12.4 (11.2-15.7) g/dL Hct 37.9 (36.0-46.0) % MCV (80-95) fL MCH (27.0-33.0) pg MCHC (32.0-36.0) % RDW (11.7-14.6) % Plt Count (130-400) 10^3/uL MPV (8.0-11.0) fL Immature Gran % % Neutrophils % % Lymphocytes % % Monocytes % % Eosinophils % % Basophils % % Nucleated RBC % (0.0-0.3) % Absolute Neutrophils (1.2-6.7) 10^3/uL Absolute Lymphocytes (1.2-3.4) 10^3/uL Absolute Monocytes (0.1-0.8) 10^3/uL Absolute Eosinophils (0.0-0.7) 10^3/uL Absolute Basophils (0.0-0.2) 10^3/uL PT (9.1-11.1) sec INR (0.9-1.1) VBG Lactate 2.9 H* (0.6-1.4) mmol/L Sodium (136-145) mmol/L Potassium (3.5-5.1) mmol/L Chloride (98-107) mmol/L Carbon Dioxide (21.0-32.0) mmol/L Anion Gap (3-11) mmol/L BUN (7-18) mg/dL Creatinine (0.55-1.02) mg/dL Est GFR (CKD-EPI 2020) (mL/min/1.73m2) Glucose (74-106) mg/dL Calcium (8.5-10.1) mg/dL Total Bilirubin (0.2-1.0) mg/dL AST (15-37) U/L ALT (14-59) U/L Alkaline Phosphatase (46-116) U/L Lactate Dehydrogenase (81-234) U/L Creatine Kinase (26-192) U/L Troponin I 9 (<or=51) ng/L Total Protein (6.4-8.2) g/dL Albumin (3.4-5.0) g/dL Lipase (<78) U/L Procalcitonin ng/mL ABO/Rh Antibody Screen 05/12/24 Range/Units 21:40 WBC 13.73 H (4.4-10.8) 10^3/uL RBC 4.31 (3.93-5.22) 10^6/uL Hgb 12.9 (11.2-15.7) g/dL Hct 39.0 (36.0-46.0) % MCV 91 (80-95) fL MCH 29.9 (27.0-33.0) pg MCHC 33.1 (32.0-36.0) % RDW 13.9 (11.7-14.6) % Plt Count 371 (130-400) 10^3/uL MPV 9.0 (8.0-11.0) fL Immature Gran % 0.4 % Neutrophils % 80.9 % Lymphocytes % 13.0 % Monocytes % 5.2 % Eosinophils % 0.3 % Basophils % 0.2 % Nucleated RBC % 0.0 (0.0-0.3) % Absolute Neutrophils 11.11 H (1.2-6.7) 10^3/uL Absolute Lymphocytes 1.78 (1.2-3.4) 10^3/uL Absolute Monocytes 0.71 (0.1-0.8) 10^3/uL Absolute Eosinophils 0.04 (0.0-0.7) 10^3/uL Absolute Basophils 0.03 (0.0-0.2) 10^3/uL PT 10.1 (9.1-11.1) sec INR 1.0 (0.9-1.1) VBG Lactate 3.3 H* (0.6-1.4) mmol/L Sodium 141 (136-145) mmol/L Potassium 3.3 L (3.5-5.1) mmol/L Chloride 103 (98-107) mmol/L Carbon Dioxide 28.2 (21.0-32.0) mmol/L Anion Gap 9.8 (3-11) mmol/L BUN 22 H (7-18) mg/dL Creatinine 0.9 (0.55-1.02) mg/dL Est GFR (CKD-EPI 2020) 66.67 (mL/min/1.73m2) Glucose 109 H (74-106) mg/dL Calcium 8.7 (8.5-10.1) mg/dL Total Bilirubin 0.23 (0.2-1.0) mg/dL AST 19 (15-37) U/L ALT 13 L (14-59) U/L Alkaline Phosphatase 103 (46-116) U/L Lactate Dehydrogenase 169 (81-234) U/L Creatine Kinase 44 (26-192) U/L Troponin I 7 (<or=51) ng/L Total Protein 7.4 (6.4-8.2) g/dL Albumin 3.1 L (3.4-5.0) g/dL Lipase 19 (<78) U/L Procalcitonin < 0.10 ng/mL ABO/Rh O Positive Antibody Screen NEGATIVE Intake and Output - 24 Hour Total 05/12/24 21:25 thru 05/13/24 01:27 Intake Total 1010 Output Total 750 Balance 260 Weight 58.967 kg Intake: IV 1010 Output: Urine 750 Other: Emesis Description None # Voids 1 Falls Risk Assessment History of Falls No History 05/12/24 21:43 Contributing Factors No Factors 05/12/24 21:43 Ambulatory Aids Independent 05/12/24 21:43 Tubes/Lines None 05/12/24 21:43 Gait Evaluation No gait disturbance 05/12/24 21:43 Cognition No cognitive impairment 05/12/24 21:43 Fall Total Score 0 05/12/24 21:43 Level of Risk Standard/Low Risk 05/12/24 21:43 Problems (Last Reviewed 01/28/24 @ 11:25 by Sarah Ferguson MD) Acute GI bleeding (Acute) Colitis (Acute) v v v v v v v v v Sending and/or Receiving Nurses: Please use comment section below to note any information pertinent to the patient hand-off not included above. Information / Comments: Pt came to hospital for c/o rectal bleeding. CT scan shows acute or infectious colitis involving the descending and sigmoid colon. Most recent H & H 12.4 & 37.9. Most recent VBG lacate 2.9. No further bleeding since arrival to the hospital. Report received from: Abimbola Jasso RN
--- NOTE | 2024-05-13 05:23 | HPE_ITS ---
Date of service: 05/13/24 Time of Service: 05:23 Assessment and Plan Assessment and plan (1) Colitis: Start date: 05/13/24 Status: Acute Assessment and plan: This is a 73-year-old lady with a history of colitis on her problem list from 2021 and on supplements for iron deficiency anemia with normal iron levels last checked. She is here for an acute lower GI bleed which has subsided and she has not had a significant drop in her hemoglobin but was tachycardic now improved on IV fluids with 1000 cc bolus of normal saline. She has she has low potassium and has an elevated lactate she will continue on IV fluid resuscitation with normal saline and 20 mg of potassium for 1 more liter. Follow-up lab closely. Surgery was consulted for possible lower endoscopy with no evidence of the previously being formed. Surgeon can review chart and advise. If patient significantly anemic with trending hemoglobin, this may not be a emergent procedure. She will be on clear fluids diet for now. She is a full code. (2) Acute GI bleeding: Start date: 05/13/24 Status: Acute Assessment and plan: This is associated with the patient's acute colitis and has subsided. Surgical consultation. Trend CBC. (3) Essential hypertension: Status: Chronic Assessment and plan: Not well-controlled acutely but will continue usual outpatient medical therapy with replacement of potassium with IV fluid hydration for increased lactic acid. Follow-up lab closely and adjust fluids. Patient is on hydrochlorothiazide and does not appear to be on chronic potassium supplement. (4) Periodic limb movement disorder (PLMD): Status: Chronic Assessment and plan: Continue outpatient therapy with patient currently on Sinemet. She also has a history of ataxia and difficulty with walking seen neurology presently. (5) Generalized anxiety disorder: Status: Chronic Assessment and plan: Continue outpatient therapy. (6) Iron deficiency: Status: Chronic Assessment and plan: Patient is not had recent iron levels checked and is on iron with vitamin C. To be for chronic blood loss with history of chronic colitis. Follow-up iron level and adjust if not deficient at this time. Patient does not appear to have severe chronic anemia by recent lab. (7) B12 deficiency: Status: Chronic Assessment and plan: History of B12 deficiency on B12 supplement by mouth. Continue supplement while in the hospital. History of Present Illness History of Present Illness Chief Complaint: Acute onset of abdominal pain with bloody stool. Narrative: This is a 73-year-old female patient who has a history of colitis in the past documented in January 2022 but not on medical therapy for this problem. The patient does not remember this problem or event. She also is on iron supplement but does not have a history of chronic anemia. She presents with an acute onset of abdominal pain and new the day of presentation with bloody stool. Stool was loose and there were 3 episodes after the initial bowel movement. She did have a viral URI with GI symptoms having diarrhea without blood a couple weeks prior to presentation. In the ED she did not have any further bowel movements and did not have significant drop in her hemoglobin though she was tachycardic which responded to IV fluid resuscitation. She is still having recurrent lower abdominal pain which is cramping and transient. The patient denies any chest pain or shortness of breath. She denies fever or chills. She also denied any nausea or vomiting/hematemesis. Abdominal pain with mostly lower, intermittent and sharp cramps. She denies any edema or new neurological complaints. She had no complaints. She continued to have an elevated lactate upon repeat lab after fluid in the ED and CTA of the abdomen and pelvis did reveal acute colitis. Patient was a started on IV ciprofloxacin and metronidazole and was resuscitated with 1 L of IV fluids. She did have a low potassium and is chronically on hydrochlorothiazide for hypertension with potassium added to her IV fluid for 1 more liter of normal saline because of her persistent elevated lactic acid. The remainder of her lab was unrevealing except for slightly elevated WBC with CRP/ESR to be checked in the morning. She will be admitted with surgical consultation for possible colonoscopy for evaluation of her acute colitis. She has never had a colonoscopy by her memory. Biopsies may be helpful with this appears to be a recurrent problem though infrequent. Serum iron level will be checked and patient will be continued on outpatient supplements for now. She is a full code. Review of Systems Narrative: 13 point review of systems otherwise unrevealing or stable. Patient has had a previous cardiac event which resulted in stenting. [facility] All Active Problems (Updated 05/13/24 @ 05:47 by Vicente Matt) B12 deficiency (Chronic) Iron deficiency (Chronic) Acute GI bleeding (Acute) Colitis (Acute) Astasia-abasia (Acute) Orthostatic tremor (Acute) Cervical stenosis of spinal canal (Acute) Ataxia (Acute) Impaired gait (Acute) Generalized anxiety disorder (Chronic) Periodic limb movement disorder (PLMD) (Chronic) Essential hypertension (Chronic) Metabolic dysfunction-associated steatotic liver disease (MASLD) (Chronic) Hyperlipidemia (Chronic) Prediabetes (Chronic) Osteoporosis (Chronic) Bisphosphonates started 2019 Medical History (Updated 05/13/24 @ 05:47 by Vicente Matt) Colitis (~01/2022) Surgical History S/P vaginal hysterectomy H/O bladder repair surgery Family History Mother , late 80s of dementia Essential hypertension Alzheimers disease Hyperlipidemia Father , in his late 80s Liver cancer Brother No problems noted. Brother No problems noted. Son No problems noted. Son No problems noted. Daughter No problems noted. Maternal Grandfather , age 86 Lung cancer Maternal Grandmother , age 61 Brain aneurysm Paternal Grandfather , age 53 Alzheimers disease Paternal Grandmother , age 98 Alzheimers disease Social History Smoking/Tobacco Use Status: Never Second Hand Exposure: No Smoking risk assessment performed?: Yes Alcohol Intake: former Drug use: Never Substance use type: does not use Adopted: No Caregiver/Support person: No Household members: none Housing: apartment Communication Needs: None Education Level: high school Details: GED Do you need help understanding health information?: Never current occupation: [employer] Pets and animals: No Sexually active: No Do you think of yourself as: straight/heterosexual Current gender identity: female What is your relationship status?: How often do you talk on the phone with friends or family?: twice per week How often do you get together with friends or relatives?: once per week How often do you attend oriental orthodox or mormonism services?: decline to answer Do you belong to any clubs or organized social groups?: decline to answer Panel score (0-1 are the most socially isolated patients): 1 What type of physical activity do you participate in: other Details: PT workouts, cleaning at Sirisha/Sabianist: None Special sirisha needs: No Seatbelt use: always Helmet use: No Drive intox or ride w/intox school bus driver/custodian: No Firearms in home: No Do you feel safe at home: Yes Do you feel safe in your relationship?: Yes Victim of physical abuse: No Victim of emotional abuse: No Victim of sexual abuse: No Would you like helpful sources: No Female Reproductive History Menstrual Menopause type: surgical History History 2 3 Para 3 Hx # Term Pregnancies Multiple births Hx # Pregnancies Ectopic pregnancies AB induced Hx Number of Living Children 3 AB spontaneous Meds Allergies and Home Medications Allergies Allergy/AdvReac Type Severity Reaction Status Date / Time No Known Allergies Allergy Verified 05/12/24 21:47 Home Medications ?Medication ?Instructions ?Recorded ?Confirmed ?Type ascorbic acid (vitamin C) 500 mg 500 mg PO DAILY 05/30/13 05/12/24 History tablet cyanocobalamin (vitamin B-12) 1,000 mcg PO DAILY 07/04/16 05/12/24 History 1,000 mcg tablet (Vitamin B-12) ibuprofen 600 mg tablet 600 mg PO Q8H PRN pain #14 tabs 04/07/18 05/12/24 Rx cholecalciferol (vitamin D3) 50 50 mcg PO DAILY 09/21/21 05/12/24 History mcg (2,000 unit) tablet ferrous sulfate 325 mg (65 mg 325 mg PO DAILY 09/21/21 05/12/24 History iron) tablet (Feosol) zoledronic acid 5 mg/100 mL in See Rx Instructions IV ONCE #100 mL 01/17/22 05/12/24 Rx mannitol 5 %-water intravenous piggybck cetirizine 10 mg tablet (Zyrtec) 10 mg PO DAILY PRN 01/17/23 05/12/24 History inhalational spacing device #1 ea 04/17/23 05/12/24 Rx (Aerochamber MV spacer) hydrochlorothiazide 25 mg tablet 25 mg PO DAILY #90 tabs 08/08/23 05/12/24 Rx metoprolol succinate 50 mg 50 mg PO DAILY #90 tabs 08/08/23 05/12/24 Rx tablet,extended release 24 hr pravastatin 40 mg tablet 40 mg PO DAILY #90 tabs 08/08/23 05/12/24 Rx mirtazapine 15 mg tablet 15 mg PO DAILY #90 tabs 11/05/23 05/12/24 Rx carbidopa 25 mg-levodopa 100 mg 1 tab PO BID 04/02/24 05/12/24 History tablet (Sinemet) clonazepam 0.5 mg tablet 0.5 mg PO BID #60 tabs 04/14/24 05/12/24 Rx Exam Narrative Exam Narrative: General: Patient appears appropriate for age, alert and oriented x 3 and in no acute distress. She does have some problems with her medical history remembering her previous episode of colitis. HEENT: Normocephalic, course and facial features, eyes with pupils equal and reactive to light symmetrically, extraocular movement intact and sclera anicteric. Oral mucosa moist with fair dentition. Neck: Supple without JVD. Back: Slightly kyphotic, no CVA tenderness. Lungs: Fair aeration and clear to auscultation percussion with no focalizing rales or rhonchi. No expiratory wheeze. Slight inspiratory coarse crackles at the bases clearing with deep inspiration. Breast: Exam deferred. Heart: Tachycardic rate with normal rhythm. No appreciable murmur or gallop. Abdomen: Obese contour, soft and nontender to palpation with no guarding or rebound. Bowel sounds are positive in all quadrants. No palpable hepatosplenomegaly. Genitalia/rectal: Exam deferred. Extremities: Without clubbing, cyanosis or pitting edema. Cap refill is good. Neuro: Cranial nerves II through XII Grossly intact, no focalizing motor deficits and no tremor. (Patient does complain of lower extremity ataxia and troubles ambulating at home see neurology). Skin: Normal color, warm and dry. Psych: Slightly anxious, normal mood. No abnormal thought processes. Remote memory fairly intact except for details of medical history, recent memory intact. This Results Imaging Imaging Studies: Exam: CTA Abdomen and Pelvis Without And With Contrast Exam date and time: 05/12/2024 11:20 PM Age: 73 years old Clinical indication: Abdominal pain; Generalized; Prior surgery; Surgery date: 6+ months; Surgery type: Hysterectomy, bladder repair; Patient HX: Gi bleeding with abd pain COMPARISON: CT ABDOMEN PELVIS W 02/08/2022 2:07 PM FINDINGS: Lungs: Normal. No consolidation. Mild subpleural scarring or subsegmental atelectasis in the lung bases noted. Aorta: No aortic aneurysm. No aortic dissection. Celiac trunk and mesenteric arteries: No occlusion or significant stenosis. Renal arteries: No occlusion or significant stenosis. Right iliac arteries: No occlusion or significant stenosis. Left iliac arteries: No occlusion or significant stenosis. Liver: Fatty infiltration of the liver is visualized. Gallbladder and biliary ducts: Multiple gallstones are present. No pericholecystic inflammatory changes to suggest cholecystitis. Pancreas: Unremarkable. No mass. No ductal dilation. Spleen: Unremarkable. No splenomegaly. Adrenal glands: Unremarkable. No mass. Kidneys and ureters: Unremarkable. No solid mass. No hydronephrosis. Simple and Bosniak type 2 left renal cysts demonstrated, measuring up to 2.2 cm, and these require no further follow-up. Stomach and bowel: Acute infectious or inflammatory colitis involving the descending and sigmoid colon demonstrated, and this is better visualized on portal venous phase images. Scattered colonic diverticula are demonstrated, without direct CT evidence for acute diverticulitis. No evidence of active contrast extravasation throughout the GI tract. Appendix: No evidence of appendicitis. Intraperitoneal space: Unremarkable. No free air. No significant fluid collection. Lymph nodes: Unremarkable. No enlarged lymph nodes. Urinary bladder: Unremarkable. No mass. Reproductive: Unremarkable as visualized. Bones/joints: Osseous structures are grossly intact. No suspicious lytic or sclerotic osseous lesion. Soft tissues: Unremarkable. IMPRESSION: Acute infectious or inflammatory colitis involving the descending and sigmoid colon demonstrated, and this is better visualized on portal venous phase images. Labs 05/13/24 01:02 05/12/24 21:40 Labs: Laboratory Results - last 24 hr 05/12/24 05/12/24 05/13/24 21:40 23:41 00:56 WBC 13.73 H RBC 4.31 Hgb 12.9 Hct 39.0 MCV 91 MCH 29.9 MCHC 33.1 RDW 13.9 Plt Count 371 MPV 9.0 Immature Gran % 0.4 Neutrophils % 80.9 Lymphocytes % 13.0 Monocytes % 5.2 Eosinophils % 0.3 Basophils % 0.2 Nucleated RBC % 0.0 Absolute Neutrophils 11.11 H Absolute Lymphocytes 1.78 Absolute Monocytes 0.71 Absolute Eosinophils 0.04 Absolute Basophils 0.03 PT 10.1 INR 1.0 VBG Lactate 3.3 H* 2.9 H* Sodium 141 Potassium 3.3 L Chloride 103 Carbon Dioxide 28.2 Anion Gap 9.8 BUN 22 H Creatinine 0.9 Est GFR (CKD-EPI 2020) 66.67 Glucose 109 H Calcium 8.7 Total Bilirubin 0.23 AST 19 ALT 13 L Alkaline Phosphatase 103 Lactate Dehydrogenase 169 Creatine Kinase 44 Troponin I 7 9 Total Protein 7.4 Albumin 3.1 L Lipase 19 Procalcitonin < 0.10 ABO/Rh O Positive Antibody Screen NEGATIVE 05/13/24 01:02 WBC RBC Hgb 12.4 Hct 37.9 MCV MCH MCHC RDW Plt Count MPV Immature Gran % Neutrophils % Lymphocytes % Monocytes % Eosinophils % Basophils % Nucleated RBC % Absolute Neutrophils Absolute Lymphocytes Absolute Monocytes Absolute Eosinophils Absolute Basophils PT INR VBG Lactate Sodium Potassium Chloride Carbon Dioxide Anion Gap BUN Creatinine Est GFR (CKD-EPI 2020) Glucose Calcium Total Bilirubin AST ALT Alkaline Phosphatase Lactate Dehydrogenase Creatine Kinase Troponin I Total Protein Albumin Lipase Procalcitonin ABO/Rh Antibody Screen Last Vital Signs Temp 36.9 C 05/13/24 02:08 Pulse 95 H 05/13/24 02:08 Resp 19 05/13/24 02:08 BP 163/98 H 05/13/24 02:08 Pulse Ox 98 05/13/24 02:08 Time Spent Time spent with Patient: >75 minutes Time was spent: preparing to see the patient(eg.review tests), obtaining and/or reviewing separately otained hiistory, ordering medications,tests, procedures, referring, communicating with other health district manager primary care sales, indepentently interpreting results, counseling the patient and care coordination
[2024-05-13] MEDS: POTASSIUM CHLORIDE/0.9% NACL 1,000 ML 125 MEQ IV ×2 (06:39→14:45)
[2024-05-13 07:03] LABS: HCT 37.4 % (36.0-46.0); HGB 12.3 g/dL (11.2-15.7); MCH 29.4 pg (27.0-33.0); MCHC 32.9 % (32.0-36.0); MCV 90 fL (80-95); MPV 9.3 fL (8.0-11.0); Platelet Count 374 10^3/uL (130-400); RBC 4.18 10^6/uL (3.93-5.22); RDW 14.4 % (11.7-14.6); RDW-SD 46.2 fL; WBC 13.52 10^3/uL (4.4-10.8)
[2024-05-13 07:06] LABS: ESR 15 mm/hr (0-30)
[2024-05-13 07:43] LABS: C-Reactive Protein < 0.50 mg/dL (<or=0.5)
--- NOTE | 2024-05-13 07:49 | W.SURGCON ---
Date of service: 05/13/24 Time of Service: 07:49 Assessment and Plan Assessment and plan (1) Colitis: Status: Acute Assessment and plan: 73-year-old woman who has colitis. She is hemodynamically stable and does not have peritoneal signs. Her abdominal exam is grossly benign aside from her subjective complaints. CTA confirms/shows good perfusion throughout the SMA and COLLIN distributions. She has a baseline hemoglobin in the 12 range going back at least 3 to 4 years. Her current hemoglobin is not down, even a little bit. She has prior CT scan showing colitis in 2021 not unlike the one from last night. I discussed this with her and she does not recall. In the absence of significant diarrhea(sounds like she only had a day or 2 and it was not very high-volume) I think this is most likely inflammatory colitis (could be Crohn's disease). Ischemic colitis is essentially ruled out because she has been normotensive and her mesenteric blood flow is adequate. Infectious colitis is possible, but she had this a couple of years ago per CT which makes me favor IBD as a diagnosis. She is not GI bleeding. This is mucosal sloughing from the colitis. Her hemoglobin has stayed stable and is stable relative to her baseline. Recommendations: No surgical intervention warranted. Surgery signing off. Outpatient GI consultation Outpatient colonoscopy in 6-8 weeks (surgery can help facilitate the colonoscopy, but not medical management of inflammatory bowel disease if she gets diagnosed) History of Present Illness Narrative: Asked by hospitalist and ER physician to consult on GI bleeding. 73-year-old woman has had cramping abdominal discomfort the last day or 2. She had some diarrhea about a week ago. This is not usual for her. She noticed blood in her stools last night and for that reason she came to the emergency department. At the bedside, she says she is not having any significant amount of diarrhea in the last stool she had was normal but there is still some blood. She tells me she has never had a colonoscopy. No family history of colon cancer. She had a CTA. The diagnosis of colitis was given. Her pain is cramping and it comes and goes. It is not all the time. PFSH All Active Problems (Updated 05/13/24 @ 05:47 by Vicente Matt) B12 deficiency (Chronic) Iron deficiency (Chronic) Acute GI bleeding (Acute) Colitis (Acute) Astasia-abasia (Acute) Orthostatic tremor (Acute) Cervical stenosis of spinal canal (Acute) Ataxia (Acute) Impaired gait (Acute) Generalized anxiety disorder (Chronic) Periodic limb movement disorder (PLMD) (Chronic) Essential hypertension (Chronic) Metabolic dysfunction-associated steatotic liver disease (MASLD) (Chronic) Hyperlipidemia (Chronic) Prediabetes (Chronic) Osteoporosis (Chronic) Bisphosphonates started 2019 Medical History (Updated 05/13/24 @ 05:47 by Vicente Matt) Colitis (~01/2022) Surgical History S/P vaginal hysterectomy H/O bladder repair surgery Family History Mother , late 80s of dementia Essential hypertension Alzheimers disease Hyperlipidemia Father , in his late 80s Liver cancer Brother No problems noted. Brother No problems noted. Son No problems noted. Son No problems noted. Daughter No problems noted. Maternal Grandfather , age 86 Lung cancer Maternal Grandmother , age 61 Brain aneurysm Paternal Grandfather , age 53 Alzheimers disease Paternal Grandmother , age 98 Alzheimers disease Social History Smoking/Tobacco Use Status: Never Second Hand Exposure: No Smoking risk assessment performed?: Yes Alcohol Intake: former Drug use: Never Substance use type: does not use Adopted: No Caregiver/Support person: No Household members: none Housing: apartment Communication Needs: None Education Level: high school Details: GED Do you need help understanding health information?: Never current occupation: [employer] Pets and animals: No Sexually active: No Do you think of yourself as: straight/heterosexual Current gender identity: female What is your relationship status?: How often do you talk on the phone with friends or family?: twice per week How often do you get together with friends or relatives?: once per week How often do you attend methodist or sabianism services?: decline to answer Do you belong to any clubs or organized social groups?: decline to answer Panel score (0-1 are the most socially isolated patients): 1 What type of physical activity do you participate in: other Details: PT workouts, cleaning at [employer]/Hol[employer]: None Special sirisha needs: No Seatbelt use: always Helmet use: No Drive 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 She has no problem discussing her symptoms and her condition and is in no distress whatsoever. Neuro: Alert and oriented x3 Psych: Good mood and affect. Good insight and understanding into condition. Chest: Non-labored breathing, no wheezing, no visible shortness of breath. Heart: Regular Abdomen: Soft, minimally distended, minimal tenderness diffusely but without peritoneal signs. Results Last Vital Signs Temp 97.9 F 05/13/24 07:26 Pulse 89 05/13/24 07:26 Resp 15 05/13/24 07:26 BP 141/84 H 05/13/24 07:26 Pulse Ox 96 05/13/24 07:26 Labs 05/13/24 12:18 05/12/24 21:40 Labs: Laboratory Results - last 24 hr 05/12/24 05/12/24 05/13/24 21:40 23:41 00:56 WBC 13.73 H RBC 4.31 Hgb 12.9 Hct 39.0 MCV 91 MCH 29.9 MCHC 33.1 RDW 13.9 Plt Count 371 MPV 9.0 Immature Gran % 0.4 Neutrophils % 80.9 Lymphocytes % 13.0 Monocytes % 5.2 Eosinophils % 0.3 Basophils % 0.2 Nucleated RBC % 0.0 Absolute Neutrophils 11.11 H Absolute Lymphocytes 1.78 Absolute Monocytes 0.71 Absolute Eosinophils 0.04 Absolute Basophils 0.03 ESR PT 10.1 INR 1.0 VBG Lactate 3.3 H* 2.9 H* Sodium 141 Potassium 3.3 L Chloride 103 Carbon Dioxide 28.2 Anion Gap 9.8 BUN 22 H Creatinine 0.9 Est GFR (CKD-EPI 2020) 66.67 Glucose 109 H Calcium 8.7 Magnesium Total Bilirubin 0.23 AST 19 ALT 13 L Alkaline Phosphatase 103 Lactate Dehydrogenase 169 Creatine Kinase 44 Troponin I 7 9 C-Reactive Protein Total Protein 7.4 Albumin 3.1 L Lipase 19 Procalcitonin < 0.10 ABO/Rh O Positive Antibody Screen NEGATIVE 05/13/24 05/13/24 01:02 05:59 WBC 13.52 H RBC 4.18 Hgb 12.4 12.3 Hct 37.9 37.4 MCV 90 MCH 29.4 MCHC 32.9 RDW 14.4 Plt Count 374 MPV 9.3 Immature Gran % Neutrophils % Lymphocytes % Monocytes % Eosinophils % Basophils % Nucleated RBC % Absolute Neutrophils Absolute Lymphocytes Absolute Monocytes Absolute Eosinophils Absolute Basophils ESR 15 PT INR VBG Lactate Sodium Potassium Chloride Carbon Dioxide Anion Gap BUN Creatinine Est GFR (CKD-EPI 2020) Glucose Calcium Magnesium 2.0 Total Bilirubin AST ALT Alkaline Phosphatase Lactate Dehydrogenase Creatine Kinase Troponin I C-Reactive Protein < 0.50 Total Protein Albumin Lipase Procalcitonin ABO/Rh Antibody Screen
[2024-05-13 07:59] LABS: Iron 49 ug/dL (50-170)
[2024-05-13 08:19] LABS: C Diff PCR Negative (Negative)
[2024-05-13] MEDS: Cyanocobalamin 500 MCG TAB 1000 MCG PO (09:12)
[2024-05-13] MEDS: Ascorbic Acid 500 MG TAB PO (09:12)
[2024-05-13] MEDS: Carbidopa 25/Levodopa 100 TAB PO ×3 (09:12→19:48)
[2024-05-13] MEDS: clonazePAM 0.5 MG TAB PO ×2 (09:12→19:47)
[2024-05-13] MEDS: Normal Saline Flush 10 ML SYR IVP ×4 (09:12→22:51)
[2024-05-13] MEDS: Metoprolol CR 50 MG TABCR PO (09:12)
[2024-05-13] MEDS: hydroCHLOROthiazide 25 MG TAB PO (09:12)
[2024-05-13] MEDS: Cholecalciferol (Vitamin D3) 1,000 UNIT TAB 2000 UNITS PO (09:12)
[2024-05-13] MEDS: Ferrous Sulfate 325 MG TAB PO ×2 (09:12→22:51)
[2024-05-13 09:52] LABS: Bilirubin Negative (Negative); Blood Trace-lysed (Negative); Clarity Sl Cloudy (Clear); Glucose Negative (Negative); Ketones Negative (Negative); Leukocyte Esterase Trace (Negative); Nitrite Negative (Negative); Urobilinogen 0.2 mg/dL (Up to 0.2); pH 6.5 (5-8)
[2024-05-13 10:05] LABS: Bacteria Few HPF (Negative); Crystals Negative HPF (Negative); Epithelial Cells Many HPF (Negative); Mucus Negative (Negative); RBC 0-2 HPF (0-2)
[2024-05-13 10:06] LABS: C & S Indicated? No/Sq. Contamination; Casts Negative LPF (Negative)
[2024-05-13 12:26] LABS: HCT 38.4 % (36.0-46.0); HGB 12.5 g/dL (11.2-15.7); MCH 29.3 pg (27.0-33.0); MCHC 32.6 % (32.0-36.0); MCV 90 fL (80-95); MPV 8.8 fL (8.0-11.0); Platelet Count 378 10^3/uL (130-400); RBC 4.27 10^6/uL (3.93-5.22); RDW 14.6 % (11.7-14.6); RDW-SD 47.8 fL; WBC 12.81 10^3/uL (4.4-10.8)
--- NOTE | 2024-05-13 14:07 | PHA.REVIEW2 ---
Pharmacy Admission Review Admission Clinical Review Admission Pharmacy Review: Acute GI bleeding (Acute) Colitis (Acute) No Known Allergies Allergy (Verified 05/12/24 21:47) Resuscitation Status Full Code Height 5 ft 2.5 in Weight 63.6 kg Comments Comments/Follow Ups: Watch BP, HR, SCr, K+, labs, for serology/stool results and for med changes (possible renal dose adjustments). Pharmacy Admission Review Renal Dosing Renal Dosing: BUN 22 mg/dL (7-18) H 05/12/24 21:40 Creatinine 0.9 mg/dL (0.55-1.02) 05/12/24 21:40 Medications needing adjustments: Reviewed (Crcl ~43 mL/min current meds are okay) Anticoagulation Anticoagulation: Hgb 12.5 g/dL (11.2-15.7) 05/13/24 12:18 Hct 38.4 % (36.0-46.0) 05/13/24 12:18 Plt Count 378 10^3/uL (130-400) 05/13/24 12:18 INR 1.0 (0.9-1.1) 05/12/24 21:40 Creatinine 0.9 mg/dL (0.55-1.02) 05/12/24 21:40 DVT Prophylaxis: Reviewed (has SCDs ordered) Opiate Usage Evaluate Pain Scale/Pains Meds: N/A Relevant Labs Relevant Labs: ESR 15 mm/hr (0-30) 05/13/24 05:59 Sodium 141 mmol/L (136-145) 05/12/24 21:40 Potassium 3.3 mmol/L (3.5-5.1) L 05/12/24 21:40 Chloride 103 mmol/L (98-107) 05/12/24 21:40 Magnesium 2.0 mg/dL (1.8-2.4) 05/13/24 05:59 C-Reactive Protein < 0.50 mg/dL (<or=0.5) 05/13/24 05:59 Electrolytes, C-Reactive P, ESR: Reviewed (has IV fluids with potassium ordered) DM Control DM Control: Glucose 109 mg/dL (74-106) H 05/12/24 21:40 DM Control: Reviewed (no DM noted in medical history, A1c was 6.1 on 03/31/24) Cardiac Review Cardiac Review: Troponin I 9 ng/L (<or=51) 05/12/24 23:41 BP, HR, EF%: Reviewed (BP and HR have been elevated most of admission so far.) QTc Review QTc: Reviewed (QTc 480 on admission) IV to PO Switch IV Medications: Reviewed Home Meds Home Med List reviewed: Reviewed Relevent Home Meds Not ordered & why?: cetirizine (PRN), ibuprofen (PRN), zolidronic acid (only given once per year) Current Meds Current Medication Order Review: Reviewed Pharmacy Antibiotic Review Relevant Labs: Relevant Labs 05/13/24 05/12/24 05:59 21:40 Lactate Dehydrogenase 169 C-Reactive Protein < 0.50 Procalcitonin < 0.10 Pharmacy Antibiotic Activity: Reviewed, no change Comments: Cipro and metronidazole ordered. Comments Comments/Follow Ups: Watch BP, HR, SCr, K+, labs, for serology/stool results and for med changes (possible renal dose adjustments).
[2024-05-13] MEDS: Acetaminophen 325 MG TAB PO (14:10)
--- NOTE | 2024-05-13 16:33 | PDOC.CMIN ---
Date of service: 05/13/24 Time of Service: 12:00 Care Management Initial Assmt Initial Assessment Reason for Hospitalization: abdominal cramping, loose and bloody stool. LGIB Functional Status/Living Situation Patient Presentation: Elsa was admitted through the ED early this morning with c/o 3 bouts of bloody diarrhea, and also abdominal cramping. Elsa was placed on IVF, IV abx, and a clear liquid diet. Surgery consulted this morning and is signing off for now. Outpatient GI and colonoscopy recommended by them. Stool studies are pending, C.diff has resulted as negative. Elsa was sitting up on the edge of the bed when CM met with her earlier today. She was pleasant, easily engaged. She stated that she is still having abdominal cramps and diarrhea. Elsa is independent at baseline. 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 Town of Residence: [place] Resides with: Alone Significant Other/Family: Local (SonYong, lives close by and is supportive. He is Elsa's HCA. 2 sons Yong and Maykel. 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 [employer] Instrumental Activities of Daily Living (ADLs): Independent Medications Medication Management: No Issues/Barriers identified Physical Functioning/Mobility Assistive Device: Attending outpatient Physical Therapy Advance Directives Advance Directives: Do you have an Advance Directive: Y 01/09/20 14:40 AD On File at [facility]: Y 01/09/20 14:40 Date Asked AD Date Reviewed 05/13/24 05/13/24 01:37 COLST On File at [facility] COLST Date Scanned Code Status Resuscitation Status Full Code Insurance Coverage/Financial Issues Insurance: Medicare Care Team Visit Care Team Role Provider Type Suzy Montejo NP Primary Care Provider NURSE PRACTITIONER InPatient Santana Salazar Other Providers OTHER LAMIN Rush Emergency Provider PHYSICIANS ASSISTANT Vicente Matt Admit Provider NON-[facility] STAFF PHYSICIAN Attending Provider Other: Neurology - Dr. Rushing Discharge Potential Discharge Needs: PCP F/U Appt Anticipated Barriers to Discharge: None Identified Patient/Family Education Needs: Review discharge instructions, discuss Ask Me Three Transportation: Private vehicle (with sonYong) Plan: Anticipate that Elsa will be discharged home with no new services. She will f/u with her PCP and continue at outpatient PT. She has an outpatient appointment with neurology on 05/20 and PT that same day. Elsa will continue per her plan of care and transport in a private vehicle. CM will continue to follow. Social Determinants of Health Screening Social Determinants of Health last assessed: 05/13/24 Will the Patient Participate in the Screening?: Yes Do you worry about having a steady place to live?: no Problems where you live: no known problems In the past 12 months, have you had to go without electric, gas, oil or water in your home?: no Have you or anyone in your house had to go without enough food to eat?: no Has lack of transportation kept you from medical appointments or from doing things needed for daily living?: no Has anyone in your life made you feel unsafe or unsupported?: no How hard is it for you to pay for the very basics like food, housing, medical care, and heating? Would you say it is:: Somewhat hard Do you want help finding or keeping work or a job?: I do not need or want help If for any reason you need help with day-to-day activities such as bathing, preparing meals, shopping, managing finances, etc., do you get the help you need?: I don?t need any help How often do you feel lonely or isolated from those around you?: Never Do you speak a language other than Ivorian at home?: No Does the patient want assistance with any of the above?: No Social Determinants of Health Comments([facility] Details): lives alone in apartment in [place], son helps with needs Health Related Social Needs Health related social needs: problems related to housing/economic circumstances (Z59.89) [facility] All Active Problems (Updated 05/13/24 @ 05:47 by Vicente Matt) B12 deficiency (Chronic) Iron deficiency (Chronic) Acute GI bleeding (Acute) Colitis (Acute) Astasia-abasia (Acute) Orthostatic tremor (Acute) Cervical stenosis of spinal canal (Acute) Ataxia (Acute) Impaired gait (Acute) Generalized anxiety disorder (Chronic) Periodic limb movement disorder (PLMD) (Chronic) Essential hypertension (Chronic) Metabolic dysfunction-associated steatotic liver disease (MASLD) (Chronic) Hyperlipidemia (Chronic) Prediabetes (Chronic) Osteoporosis (Chronic) Bisphosphonates started 2018 Medical History (Updated 05/13/24 @ 05:47 by Vicente Matt) Colitis (~01/2022) Surgical History S/P vaginal hysterectomy H/O bladder repair surgery Family History Mother , late 80s of dementia Essential hypertension Alzheimers disease Hyperlipidemia Father , in his late 80s Liver cancer Brother No problems noted. Brother No problems noted. Son No problems noted. Son No problems noted. Daughter No problems noted. Maternal Grandfather , age 86 Lung cancer Maternal Grandmother , age 61 Brain aneurysm Paternal Grandfather , age 53 Alzheimers disease Paternal Grandmother , age 98 Alzheimers disease Social History Smoking/Tobacco Use Status: Never Second Hand Exposure: No Smoking risk assessment performed?: Yes Alcohol Intake: former Drug use: Never Substance use type: does not use Adopted: No Caregiver/Support person: No Household members: none Housing: apartment Communication Needs: None Education Level: high school Details: GED Do you need help understanding health information?: Never current occupation: [employer] Pets and animals: No Sexually active: No Do you think of yourself as: straight/heterosexual Current gender identity: female What is your relationship status?: How often do you talk on the phone with friends or family?: twice per week How often do you get together with friends or relatives?: once per week How often do you attend faith or hindu services?: decline to answer Do you belong to any clubs or organized social groups?: decline to answer Panel score (0-1 are the most socially isolated patients): 1 What type of physical activity do you participate in: other Details: PT workouts, cleaning at [employer]/Church: None Special sirisha needs: No Seatbelt use: always Helmet use: No Drive intox or ride w/intox 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
--- NOTE | 2024-05-13 17:41 | CHAPLAIN ---
Elsa was in bed when I stopped in, visiting with two family members/friends. I explained my role and offered support.
[2024-05-13 18:06] LABS: HCT 36.7 % (36.0-46.0); HGB 11.9 g/dL (11.2-15.7); MCH 29.9 pg (27.0-33.0); MCHC 32.4 % (32.0-36.0); MCV 92 fL (80-95); MPV 8.9 fL (8.0-11.0); Platelet Count 320 10^3/uL (130-400); RBC 3.98 10^6/uL (3.93-5.22); RDW 14.4 % (11.7-14.6); RDW-SD 48.8 fL; WBC 11.14 10^3/uL (4.4-10.8)
[2024-05-13] MEDS: Mirtazapine 15 MG TAB PO (19:47)
[2024-05-13] MEDS: Pravastatin 40 MG TAB PO (19:47)
[2024-05-14 00:13] LABS: MCH 29.7 pg (27.0-33.0); MCHC 32.4 % (32.0-36.0); MCV 92 fL (80-95); MPV 8.9 fL (8.0-11.0); Platelet Count 313 10^3/uL (130-400); RBC 4.04 10^6/uL (3.93-5.22); RDW 14.5 % (11.7-14.6); RDW-SD 48.5 fL; WBC 11.31 10^3/uL (4.4-10.8)
[2024-05-14] MEDS: CIPROFLOXACIN 400 MG/200 ML BAG 200 MG IVPB ×2 (00:28→12:00)
[2024-05-14] MEDS: Normal Saline Flush 10 ML SYR IVP ×4 (00:29→21:22)
[2024-05-14] MEDS: metroNIDAZOLE 500 MG/100 ML BAG 100 MG IVPB ×4 (01:57→21:22)
[2024-05-14] MEDS: POTASSIUM CHLORIDE/0.9% NACL 1,000 ML 125 MEQ IV (01:57)
[2024-05-14 03:37] VITALS: BP 130/72; PULSE 88; RESP 18; TEMP 36.3; O2SAT 93
[2024-05-14 06:59] LABS: Abs Immature Grans 0.04 10^3/uL (0.0-0.06); Absolute Basophil Count 0.04 10^3/uL (0.0-0.2); Absolute Eosinophil Count 0.46 10^3/uL (0.0-0.7); Absolute Lymphocyte Count 1.75 10^3/uL (1.2-3.4); Absolute Monocyte Count 0.78 10^3/uL (0.1-0.8); Basophils % 0.4 %; Eosinophils % 4.2 %; HCT 35.5 % (36.0-46.0); HGB 11.6 g/dL (11.2-15.7); Immature Grans % 0.4 %; Lymphocytes % 15.9 %; MCH 29.4 pg (27.0-33.0); MCHC 32.7 % (32.0-36.0); MCV 90 fL (80-95); MPV 9.4 fL (8.0-11.0); Monocytes % 7.1 %; Platelet Count 333 10^3/uL (130-400); RBC 3.94 10^6/uL (3.93-5.22); RDW 14.3 % (11.7-14.6); RDW-SD 47.4 fL; WBC 10.99 10^3/uL (4.4-10.8)
[2024-05-14 07:00] LABS: Absolute Neutrophil Count 7.91 10^3/uL (1.2-6.7)
[2024-05-14 07:17] LABS: Prothrombin Time 10.3 sec (9.1-11.1)
[2024-05-14 07:29] VITALS: BP 151/88; PULSE 88; RESP 15; TEMP 36.4; O2SAT 92
[2024-05-14 07:36] LABS: ALT 15 U/L (14-59); AST 17 U/L (15-37); Albumin 2.8 g/dL (3.4-5.0); Alkaline Phosphatase 79 U/L (46-116); Anion Gap 6.1 mmol/L (3-11); BUN 6 mg/dL (7-18); CO2 28.9 mmol/L (21.0-32.0); CREATININE 0.6 mg/dL (0.55-1.02); Calcium 8.3 mg/dL (8.5-10.1); Chloride 107 mmol/L (98-107); Estimated GFR 93.55 (mL/min/1.73m2); Glucose 97 mg/dL (74-106); Magnesium 1.9 mg/dL (1.8-2.4); Potassium 3.4 mmol/L (3.5-5.1); Sodium 142 mmol/L (136-145); Total Protein 6.5 g/dL (6.4-8.2)
[2024-05-14] MEDS: Cholecalciferol (Vitamin D3) 1,000 UNIT TAB 2000 UNITS PO (08:13)
--- NOTE | 2024-05-14 08:13 | PT.INIE ---
PT Notes Visit Reasons: Acute Lower GI Bleed, Colitis Physical Therapy Inpatient Initial Evaluation Date: 05/14/2024 Referring Doctor: Abdirahman Cordero MD PT Orders: PT CONSULT: Eval/Treat Precautions: Fall. Standard. Activity as tolerated. Patient Profile/Admitting Diagnosis: Jenifer is a 73-year-old female admitted for management of colitis, acute GI bleed, essential hypertension, PLMD and is currently on Sinemet, generalized anxiety disorder, and iron deficiency. Serene has been on Fe and vit B12 supplementation. Per Nurse Paul, patient's Sinemet has also been increased to manage her PLMD. PMHX: All Active Problems (Updated 05/13/24 @ 05:47 by Vicente Matt) B12 deficiency (Chronic) Iron deficiency (Chronic) Acute GI bleeding (Acute) Colitis (Acute) Astasia-abasia (Acute) Orthostatic tremor (Acute) Cervical stenosis of spinal canal (Acute) Ataxia (Acute) Impaired gait (Acute) Generalized anxiety disorder (Chronic) Periodic limb movement disorder (PLMD) (Chronic) Essential hypertension (Chronic) Metabolic dysfunction-associated steatotic liver disease (MASLD) (Chronic) Hyperlipidemia (Chronic) Prediabetes (Chronic) Osteoporosis (Chronic) Bisphosphonates started 2019 Medical History (Updated 05/13/24 @ 05:47 by Vicente Matt) Colitis (~01/2022) Surgical History S/P vaginal hysterectomy H/O bladder repair surgery Social History/Home Situation: 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 Independent with all mobility ADLs using SPC. Equipment Owned/DME: SPC Subjective: Feels weak as she has not walked far for the past three days. Objective: General Observation: Resting in bed. Nurse Paul with patient just wrapping up medication dispensing and then diconnected patient from IV for walking Mental Status: Alert and oriented as to person, place, time, and purpose. Able to pay attention, focus, and respond appropriately. Much more impulsive without AD. Pain: Minimal abdominal Vital Signs: See below ROM: Right Upper Extremity: Shoulder Flexion WFL. Shoulder abduction WFL. Elbow flexion WFL. Wrist flexion WFL. Functional opening and closing of hand WFL. Left Upper Extremity: Shoulder Flexion WFL. Shoulder abduction WFL. Elbow flexion WFL. Wrist flexion WFL. Functional opening and closing of hand WFL. Right Lower Extremity: Hip flexion WFL. Hip abduction WFL. Knee flexion WFL. Ankle dorsiflexion WFL. Ankle plantarflexion WFL. Left Lower Extremity: Hip flexion WFL. Hip abduction WFL. Knee flexion WFL. Ankle dorsiflexion WFL. Ankle plantarflexion WFL. Strength: Right Upper Extremity: Shoulder flexors 4-/5. Shoulder abductors 4-/5. Elbow flexors 4-/5. Elbow extensors 4-/5. Residential Program Worker strong. Left Upper Extremity: Shoulder flexors 4-/5. Shoulder abductors 4-/5. Elbow flexors 4-/5. Elbow extensors 4-/5. Residential Program Worker strong. Right Lower Extremity: Hip flexors 4-/5. Hip abductors 4-/5. Knee flexors 4/5. Knee extensors 4-/5. Ankle dorsiflexors 4-/5. Ankle plantarflexors 4-/5. Left Lower Extremity: Hip flexors 4-/5. Hip abductors 4-/5. Knee flexors 4/5. Knee extensors 4-/5. Ankle dorsiflexors 4-/5. Ankle plantarflexors 4-/5. Bed Mobility/Transfers: Minimal cueing provided for use of B hands as needed for support, movement sequence, AD management, and posture to reduce fall risk and minimize pain report Supine to sit supervision Sit to supine supervision Sit to stand supervision Stand to sit supervision Bed to toilet seat stand by assist with FWW Toilet seat to bed stand by assist with FWW Gait: Nurse Beverly prudently removed IV line to allow for unencumbered walking assessment. Facilitated safe and correct performance of level surface ambulation using FWW with discontinuous, almost robotic movement/stiffness of B LE. For this morning's assessment, FWW has provided upright posturing and controlled anterior loss of balance as patient would when not using any device like she did walking out of the bathroom without said walker and appeared like she was going to trip forward, needing some assistance from PT. With FWW, she was able to cover about 100 feet before she needed to sit down to rest due to fatigue, stand by assist provided. Directional change was a challenge as patient needed to significantly slow down and had quite the challenge to change course. BP after 100 feet of walking 161/81 mmHg, 97% on RA, 79 bpm. Balance: Static Sitting: Normal Dynamic Sitting: Normal Static Standing: Fair Dynamic Standing: Fair Special Tests: Mobility Limitations Standardized Measure [facility] AM-PAC 6 clicks Basic Mobility Inpatient Short Form: Raw Score: 23 CMS Score: 11% deficit 4-Stage Balance Test: DLS/Feet together 10 seconds Semi-tandem <10 seonds Full tandem <10 seconds SLS/One-legged stance <10 seconds THERA ACT: Worked on slow alternating toe tapping using a 12-inch height step for 10 reps for 2 sets to improve step height/quality of gait. Patient reported some cramping on abdominal area after first set. Informed Consent/Education: Patient was instructed in purpose of PT consult and plan of care. Agreeable to proceed with established PT POC to achieve personal goals. Assessment: Patient with chronic ataxia, astasia-abasia, and orthostatic tremors/periodic chris movement disorder causing balance impairment and weakness in B lower extremity. She has been followed by neurologist and is currently on Sinemet to mamange symptoms. She has been goign to OP PT for balance and strength retraining. Patient presents with clinical signs and symptoms consistent with current/admitting diagnoses that have resulted to mobility limitations, gait instability, generalized weakness, and overall ADL decline as demonstrated by the following impairment level findings: 1. Decreased strength to B LE major muscle groups 2. Impaired standing balance 3. Impaired activity tolerance 4. Limitation of joint range of motion in 5. Shortness of breath 6. Swelling Impairments are contributing to the following functional limitations: 1. Decline in bed mobility skills 2. Decline in transfer skills 3. Difficulty with ambulation without assistive device and physical assistance 4. Increased completion time for mobility ADL performance 5. Increased risk for falls 6. Difficulty with managing steps alone safely Patient is assessed as a 60258 moderate complexity based on the following: History: 73-year-old female with past medical history as indicated above Examination: Demonstrable impairment in strength, balance, and mobility level with underlying impairments and functional limitations as exhibited above as well as deficit score of 23% utilizing the [facility] Mobility Inpatient Short Form Presentation: Stable Decision Makin moderate complexity Goals: Goals X1 week 1. Supine-Sit independent 2. Sit-Supine independent 3. Sit-Stand independent 4. Stand-Sit independent with SPC 5. Bed-Chair independent with SPC 6. Chair-Bed independent with SPC 7. Independent gait on level surface with use of SPC for at least 600 feet without report of pain nor dyspnea 8. Independent stair negotiation while holding onto 1 rail for at least 12 steps without report of pain nor dyspnea 9. Independent with home exercise program 10. Good static and dynamic standing balance/tolerance Plan of Care/Treatment Plan: 1-2x/day, 7 days/week x 1 week. Plan of care has been reviewed with the DRY CLEANING MACHINE OPERATOR providing the service under Physical Therapy direction. Initiate Physical Therapy intervention for pain management as needed, strengthening, bed mobility, transfers, gait, stairs, balance training, and use of assistive device. DISCHARGE RECOMMENDATIONS: [] Home with no services [] [X] Home with services. Resume OP PT for continued balance retraining and progressive strengthening. [] Home with outpatient PT [] [] SNF for continued rehabilitation [] [] Retail Merchandiser Care [] [] SNF versus LTC based on ability to participate and progress [] TREATMENT CODE/TIME: 64152 x 20 minutes for 1 unit, 38459 x14 minutes for 1 unit (8:13-8:47). Thank you for the opportunity to participate in the care of this patient. Tami Lester PT, DPT, CLT [facility] [place], [place]
[2024-05-14] MEDS: hydroCHLOROthiazide 25 MG TAB PO (08:14)
[2024-05-14] MEDS: clonazePAM 0.5 MG TAB PO ×2 (08:14→21:22)
[2024-05-14] MEDS: Ascorbic Acid 500 MG TAB PO (08:14)
[2024-05-14] MEDS: Metoprolol CR 50 MG TABCR PO (08:14)
[2024-05-14] MEDS: Cyanocobalamin 500 MCG TAB 1000 MCG PO (08:14)
[2024-05-14] MEDS: Carbidopa 25/Levodopa 100 TAB PO ×3 (08:14→21:22)
[2024-05-14] MEDS: Ferrous Sulfate 325 MG TAB PO ×2 (09:58→21:22)
[2024-05-14 11:20] VITALS: BP 137/88; PULSE 80; RESP 15; TEMP 36.5; O2SAT 93
[2024-05-14] MEDS: Acetaminophen 325 MG TAB PO (14:08)
[2024-05-14] MEDS: Loperamide 2 MG CAP PO (14:09)
[2024-05-14 15:37] VITALS: BP 126/69; PULSE 73; RESP 12; TEMP 36.6; O2SAT 94
--- NOTE | 2024-05-14 16:28 | CMPROGNOTE_ITS ---
Date of service: 05/14/24 Time of Service: 14:30 Care Management Progress Note Progress Note Text Progress Note Text: Elsa was sitting up in the bedside chair when CM met with her today. She stated that she has had some diarrhea today, and is feeling only a bit better than yesterday. That said, she is eager to have her regular dinner tonight and hopefully go home tomorrow. Discharge Potential Discharge Needs: PCP F/U Appt and Other (continue with outpatient PT) Anticipated Barriers to Discharge: None Identified Patient/Family Education Needs: Review discharge instructions, discuss Ask Me Three Transportation: Private vehicle (with sonYong ) Plan: Anticipate that Elsa will be discharged home with no new services. She will f/u with her PCP and continue at outpatient PT. It is suggested that she have a colonoscopy as outpatient in 6-8 weeks. She has an outpatient appointment with neurology on 05/20 and PT that same day. Elsa will continue per her plan of care and transport in a private vehicle. CM will continue to follow. Social Determinants of Health Screening Social Determinants of Health last assessed: 05/14/24 Will the Patient Participate in the Screening?: Yes Do you worry about having a steady place to live?: no Problems where you live: no known problems In the past 12 months, have you had to go without electric, gas, oil or water in your home?: no Have you or anyone in your house had to go without enough food to eat?: no Has lack of transportation kept you from medical appointments or from doing things needed for daily living?: no Has anyone in your life made you feel unsafe or unsupported?: no How hard is it for you to pay for the very basics like food, housing, medical care, and heating? Would you say it is:: Somewhat hard Do you want help finding or keeping work or a job?: I do not need or want help If for any reason you need help with day-to-day activities such as bathing, preparing meals, shopping, managing finances, etc., do you get the help you need?: I don?t need any help How often do you feel lonely or isolated from those around you?: Never Do you speak a language other than Mauritian at home?: No Does the patient want assistance with any of the above?: No Social Determinants of Health Comments(SDME Details): lives alone in apartment in [place], son helps with needs Health Related Social Needs Health related social needs: problems related to housing/economic circumstances (Z59.89)
--- NOTE | 2024-05-14 16:49 | PTTR_ITS ---
PT Notes Visit Reasons: Acute Lower GI Bleed, Colitis Inpatient Physical Therapy Treatment Note [facility] Date: 05/14/2024 PRECAUTIONS: Falls, standard, activity as tolerated SUBJECTIVE: Patient reported difficulty straightening her knees while walking OBJECTIVE: Patient presented seated upright in chair on her phone. Agreeable to participate in PT session? PAIN: Denied VITALS: ?Monitored by nursing throughout Therapeutic Activities (26626c[]): Direct one-on-one instruction in dynamic activities to improve functional performance. ?? Provided skilled cues and instruction on performance and technique throughout. Transfers with FWW various surfaces and heights including toilet chair wheelchair bed SBA with cues for hand placement. Patient requires cues for upright posture and to improve knee extension. Ambulation: Facilitated safe and correct performance of level surface ambulation covering a distance of 300 feet using use front wheeled walker with contact-guard assist and wheelchair follow for safety. Did not report of any increased pain. Denied headache, chest pain, and lightheadedness throughout activity. Minimal verbal cueing provided for AD management, directional changes, and posture including knee extension. ASSESSMENT: Patient tolerated session well although session shortened due to need for use of the bathroom. Patient reported fatigue in her legs at the end but did not note any weakness. Patient was excessive dorsiflexion knee flexion hip flexion bilaterally during ambulation. Patient noted with impaired dorsifl exion and hamstring length in standing with knee extension. Patient may benefit from foot wear to accommodate lack of dorsiflexion and promote knee extension to reduce quad fatigue and improve upright posture. Patient has been attending outpatient PT to work on her flexibility and balance. Next session will assess ambulation with cane. PLAN: 1-2x/day, 7 days/week x 1 week. Plan of care has been reviewed with the DEVELOPMENT TRAINER providing the service under Physical Therapy direction. Initiate Physical Therapy intervention for strengthening, bed mobility, transfers, gait, stairs, balance training, use of assistive device. TREATMENT CODE/TIME: 75696/1511?1527 DISCHARGE RECOMMENDATION: Resume outpatient PT for balance and strengthening
--- NOTE | 2024-05-14 18:35 | PGE_ITS ---
Date of Service Date of service: 05/14/24 Time of Service: 18:36 Assessment and Plan Assessment and plan (1) Colitis: Start date: 05/13/24 Status: Acute Assessment and plan: This is a 73-year-old lady with a history of colitis on her problem list from 2021 and on supplements for iron deficiency anemia with normal iron levels last checked. She is here for an acute lower GI bleed which has subsided and she has not had a significant drop in her hemoglobin but was tachycardic now improved on IV fluids with 1000 cc bolus of normal saline. She has she has low potassium and has an elevated lactate she will continue on IV fluid resuscitation with normal saline and 20 mg of potassium for 1 more liter. Follow-up lab closely. Surgery was consulted for possible lower endoscopy with no evidence of the previously being formed. Surgeon can review chart and advise. If patient significantly anemic with trending hemoglobin, this may not be a emergent procedure. She will be on clear fluids diet for now. She is a full code. 1.15.25 Cw cipro and flagyl, stool stiudies pending (2) Acute GI bleeding: Start date: 05/13/24 Status: Acute Assessment and plan: This is associated with the patient's acute colitis and has subsided. Surgical consultation. Trend CBC. will attach GS note below, no GIB noted Assessment and plan: 73-year-old woman who has colitis. She is hemodynamically stable and does not have peritoneal signs. Her abdominal exam is grossly benign aside from her subjective complaints. CTA confirms/shows good perfusion throughout the SMA and COLLIN distributions. She has a baseline hemoglobin in the 12 range going back at least 3 to 4 years. Her current hemoglobin is not down, even a little bit. She has prior CT scan showing colitis in 2021 not unlike the one from last night. I discussed this with her and she does not recall. In the absence of significant diarrhea(sounds like she only had a day or 2 and it was not very high-volume) I think this is most likely inflammatory colitis (could be Crohn's disease). Ischemic colitis is essentially ruled out because she has been normotensive and her mesenteric blood flow is adequate. Infectious colitis is possible, but she had this a couple of years ago per CT which makes me favor IBD as a diagnosis. She is not GI bleeding. This is mucosal sloughing from the colitis. Her hemo globin has stayed stable and is stable relative to her baseline. Recommendations: No surgical intervention warranted. Surgery signing off. Outpatient GI consultation Outpatient colonoscopy in 6-8 weeks (surgery can help facilitate the colonoscopy, but not medical management of inflammatory bowel disease if she gets diagnosed) (3) Essential hypertension: Status: Chronic Assessment and plan: Not well-controlled acutely but will continue usual outpatient medical therapy with replacement of potassium with IV fluid hydration for increased lactic acid. Follow-up lab closely and adjust fluids. Patient is on hydrochlorothiazide and does not appear to be on chronic potassium supplement. 05.14.24 (4) Periodic limb movement disorder (PLMD): Status: Chronic Assessment and plan: Continue outpatient therapy with patient currently on Sinemet. She also has a history of ataxia and difficulty with walking seen neurology presently. (5) Generalized anxiety disorder: Status: Chronic Assessment and plan: Continue outpatient therapy. (6) Iron deficiency: Status: Chronic Assessment and plan: Patient is not had recent iron levels checked and is on iron with vitamin C. To be for chronic blood loss with history of chronic colitis. Follow-up iron level and adjust if not deficient at this time. Patient does not appear to have severe chronic anemia by recent lab. 05.14.24 I have increased her iron supplementation (7) B12 deficiency: Status: Chronic Assessment and plan: History of B12 deficiency on B12 supplement by mouth. Continue supplement while in the hospital. (8) Diarrhea: Status: Acute Assessment and plan: started on imodium. Will reassess in the am Subjective Subjective Interval history since last seen: Pt seen and examined in her room this am. Pt complains of continued diarrhea. Pt would like to wait another day 2/2 diarrhea Exam Narrative Exam Narrative: Gen: Non-toxic, comfortable and interactive. She has no problem discussing her symptoms and her condition and is in no distress whatsoever. Neuro: Alert and oriented x3 Psych: Good mood and affect. Good insight and understanding into condition. Chest: Non-labored breathing, no wheezing, no visible shortness of breath. Heart: Regular Abdomen: Soft, minimally distended, minimal tenderness diffusely but without peritoneal signs. Objective Last Vital Signs Temp 36.6 C 05/14/24 15:37 Pulse 73 05/14/24 15:37 Resp 12 05/14/24 15:37 BP 126/69 05/14/24 15:37 Pulse Ox 94 05/14/24 15:37 Laboratory Results - last 24 hr 05/14/24 05/14/24 00:06 05:40 WBC 11.31 H 10.99 H RBC 4.04 3.94 Hgb 12.0 11.6 Hct 37.0 35.5 L MCV 92 90 MCH 29.7 29.4 MCHC 32.4 32.7 RDW 14.5 14.3 Plt Count 313 333 MPV 8.9 9.4 Immature Gran % 0.4 Neutrophils % 72.0 Lymphocytes % 15.9 Monocytes % 7.1 Eosinophils % 4.2 Basophils % 0.4 Nucleated RBC % 0.0 Absolute Neutrophils 7.91 H Absolute Lymphocytes 1.75 Absolute Monocytes 0.78 Absolute Eosinophils 0.46 Absolute Basophils 0.04 PT 10.3 INR 1.0 Sodium 142 Potassium 3.4 L Chloride 107 Carbon Dioxide 28.9 Anion Gap 6.1 BUN 6 L Creatinine 0.6 Est GFR (CKD-EPI 2020) 93.55 Glucose 97 Calcium 8.3 L Magnesium 1.9 Total Bilirubin 0.40 AST 17 ALT 15 Alkaline Phosphatase 79 Total Protein 6.5 Albumin 2.8 L Time Spent with Patient Time Spent with Patient: 25-34 minutes Time was spent: preparing to see the patient(eg.review tests), ordering medications,tests, procedures, referring, communicating with other health day care worker, indepentently interpreting results, counseling the patient and care coordination
[2024-05-14] MEDS: Mirtazapine 15 MG TAB PO (21:21)
[2024-05-14] MEDS: Pravastatin 40 MG TAB PO (21:21)
[2024-05-14 23:59] LABS: Campylobacter PCR Negative (Negative); Salmonella PCR Negative (Negative); Shiga Toxin PCR Negative (Negative); Shigella/Enteroinvasive Ecoli Negative (Negative)
[2024-05-15] MEDS: CIPROFLOXACIN 400 MG/200 ML BAG 200 MG IVPB (00:11)
[2024-05-15] MEDS: metroNIDAZOLE 500 MG/100 ML BAG 100 MG IVPB ×2 (02:40→08:11)
[2024-05-15 05:42] VITALS: BP 100/56; PULSE 72; RESP 16; TEMP 36.6; O2SAT 93
[2024-05-15 06:43] LABS: Abs Immature Grans 0.02 10^3/uL (0.0-0.06); Absolute Basophil Count 0.04 10^3/uL (0.0-0.2); Absolute Eosinophil Count 0.63 10^3/uL (0.0-0.7); Absolute Lymphocyte Count 1.62 10^3/uL (1.2-3.4); Absolute Monocyte Count 0.75 10^3/uL (0.1-0.8); Absolute Neutrophil Count 6.05 10^3/uL (1.2-6.7); Basophils % 0.4 %; Eosinophils % 6.9 %; Immature Grans % 0.2 %; Lymphocytes % 17.8 %; MCH 29.7 pg (27.0-33.0); MCHC 33.3 % (32.0-36.0); MCV 89 fL (80-95); MPV 9.1 fL (8.0-11.0); Monocytes % 8.2 %; Neutrophils % 66.5 %; Platelet Count 330 10^3/uL (130-400); RBC 4.04 10^6/uL (3.93-5.22); RDW 14.4 % (11.7-14.6); RDW-SD 46.8 fL; WBC 9.11 10^3/uL (4.4-10.8)
[2024-05-15 07:13] LABS: ALT 17 U/L (14-59); AST 34 U/L (15-37); Albumin 2.9 g/dL (3.4-5.0); Alkaline Phosphatase 82 U/L (46-116); BUN 12 mg/dL (7-18); Bilirubin, Total 0.29 mg/dL (0.2-1.0); CREATININE 0.8 mg/dL (0.55-1.02); Calcium 8.9 mg/dL (8.5-10.1); Chloride 106 mmol/L (98-107); Estimated GFR 76.79 (mL/min/1.73m2); Glucose 108 mg/dL (74-106); Potassium 3.4 mmol/L (3.5-5.1); Sodium 142 mmol/L (136-145); Total Protein 6.7 g/dL (6.4-8.2)
[2024-05-15] MEDS: Metoprolol CR 50 MG TABCR PO (07:35)
[2024-05-15] MEDS: Cholecalciferol (Vitamin D3) 1,000 UNIT TAB 2000 UNITS PO (07:35)
[2024-05-15] MEDS: Cyanocobalamin 500 MCG TAB 1000 MCG PO (07:35)
[2024-05-15] MEDS: hydroCHLOROthiazide 25 MG TAB PO (07:35)
[2024-05-15] MEDS: Normal Saline Flush 10 ML SYR IVP (07:36)
[2024-05-15] MEDS: Carbidopa 25/Levodopa 100 TAB PO (07:36)
[2024-05-15] MEDS: Ascorbic Acid 500 MG TAB PO (07:36)
[2024-05-15] MEDS: clonazePAM 0.5 MG TAB PO (07:36)
[2024-05-15 07:46] VITALS: BP 118/70; PULSE 82; RESP 16; TEMP 36.4; O2SAT 94
--- NOTE | 2024-05-15 08:50 | PTTR_ITS ---
PT Notes Visit Reasons: Acute Lower GI Bleed, Colitis Physical Therapy Inpatient Treatment Note Date: 05/15/2024 Precautions: Fall. Standard. Activity as tolerated. Subjective: Did not sleep well last night. Hopeful that she could go home today. Agreeable to continuing with OP PT once home. Objective: General Observation: Sitting on chair. Mental Status: Alert and oriented as to person, place, time, and purpose. Able to pay attention, focus, and respond appropriately. Much more impulsive without AD. Pain: None reported Vital Signs: WNL as closley moniored by nursing staff Bed Mobility/Transfers: Minimal cueing provided for use of B hands as needed for support, movement sequence, AD management, and posture to reduce fall risk and minimize pain report Supine to sit supervision Sit to supine supervision Sit to stand supervision with FWW Stand to sit supervision with FWW Bed to toilet seat supervision with FWW Toilet seat to bed supervision with FWW Gait: -40 feet with SPC with ataxic gait, path deviation, and difficult directional change. -300 feet with FWW, supervision only with patient able to sustain more upright trunk positioning as well as more improved extension at hips and knees during midstance and push off. Path deviation corrected and gait spped much more maintained. Balance: Static Sitting: Normal Dynamic Sitting: Normal Static Standing: Fair Dynamic Standing: Fair THERA EX: Worked on increasing strength for hip and knee extension prviding one-on-one instrcution in correct execution of: Combined upper thoracic extension while pushing off on rail and doing bilateral heel raises 5 sh x10 Resisted B knee extension in standing while pushing against bolster placed b etween patient's popliteal area and edge of plinth, 5 sh x 10 Resisted B knee extension while seated at edge of bed and both heels propped on a 12-inch step height, PT resisting downward push with grenn TB, 5 sh x 10 Assessment: Patient with chronic ataxia, astasia-abasia, and orthostatic tremors/periodic chris movement disorder causing balance impairment and weakness in B lower extremity. She has been followed by neurologist and is currently on Sinemet to mamange symptoms. She has been going to OP PT for balance and strength retraining. Much more tolerant of today's activities without report of fatigue. Performs ambulation task better with use of FWW. DISCHARGE RECOMMENDATIONS: [] Home with no services [] [X] Home with services. Resume OP PT for continued balance retraining and progressive strengthening. [] Home with outpatient PT [] [] SNF for continued rehabilitation [] [] Chief Supply Chain Officer Care [] [] SNF versus LTC based on ability to participate and progress [] TREATMENT CODE/TIME: 96131 x 25 minutes for 2 units, 35168 x 10 minutes for 1 unit (8:50-9:30).
[2024-05-15] MEDS: Ferrous Sulfate 325 MG TAB PO (09:24)
--- NOTE | 2024-05-15 11:05 | PDOC.CMDIS ---
Date of service: 05/15/24 Time of Service: 11:06 LACE Index Scoring Tool Questions: Length of Stay (in days): 2 Was the patient admitted via the E.D.?: Yes Comorbidities: Liver or Renal Disease E.D. Visits: 1 Answers: Total Score: 11 Risk of Readmission: High Risk Care Management Discharge Plan Reason for Hospitalization: colitis Discharge Plan: Elsa will be discharged home with no new services. She will follow up with her PCP and plan of care and transport with family. Patient/Family Education Needs: [facility] Health Related Social Needs: Health related social needs problems related to housing/economic circumstances (Z59.89)
--- NOTE | 2024-05-15 11:41 | W.PM.DS.N ---
Date of service: 05/15/24 Time of Service: 11:41 DS: Diagnosis Discharge Diagnosis (1) Colitis: Status: Acute (2) Acute GI bleeding: Status: Acute (3) Essential hypertension: Status: Chronic (4) Periodic limb movement disorder (PLMD): Status: Chronic (5) Generalized anxiety disorder: Status: Chronic (6) Iron deficiency: Status: Chronic (7) B12 deficiency: Status: Chronic (8) Diarrhea: Status: Acute Discharge Plan Disposition Patient Disposition: Home Condition: Good Discharge Details Reason For Visit: Acute Lower GI Bleed, Colitis Admit Date/Time: 05/13/24 00:38 Admit Provider: Vicente Matt Attending Provider: Vicente Matt [facility] Hospital Course: Patient initially presented with signs and symptoms that were consistent with infectious versus inflammatory colitis. She was assessed for potential GI bleed but this was likely secondary to GI irritation and not overt GI bleed as her hemoglobin was stable and no additional bleeding was noted. She has had imaging and did not show any obstructed flow of her SMA or COLLIN. Position patient was also on Cipro and Flagyl which will be continued for an additional 5 days at discharge. Home Meds and New Rx's Prescriptions: New ciprofloxacin HCl [Cipro] 500 mg tablet 500 mg PO BID Qty: 10 0RF metronidazole 500 mg tablet 500 mg PO BID 10 Days Qty: 10 0RF Continued mirtazapine 15 mg tablet 15 mg PO DAILY Qty: 90 3RF zoledronic nghs-ptzwwkyx-spaaz 5 mg/100 mL piggyback See Rx Instructions IV ONCE Qty: 100 0RF Rx Instructions: 5mg IV once a year, administer over at least 30 mins cholecalciferol (vitamin D3) 50 mcg (2,000 unit) tablet 50 mcg PO DAILY ferrous sulfate [Feosol] 325 mg (65 mg iron) tablet 325 mg PO DAILY cetirizine [Zyrtec] 10 mg tablet 10 mg PO DAILY PRN ascorbic acid (vitamin C) 500 MG tablet 500 mg PO DAILY cyanocobalamin (vitamin B-12) [Vitamin B-12] 1,000 MCG tablet 1,000 mcg PO DAILY hydrochlorothiazide 25 mg tablet 25 mg PO DAILY Qty: 90 3RF Rx Instructions: Take 1 tablet daily metoprolol succinate 50 mg tablet extended release 24 hr 50 mg PO DAILY Qty: 90 3RF pravastatin 40 mg tablet 40 mg PO DAILY Qty: 90 3RF Rx Instructions: Take 1 tablet daily carbidopa-levodopa [Sinemet] 25-100 mg tablet 1 tab PO BID clonazepam 0.5 mg tablet 0.5 mg PO BID Qty: 60 1RF ibuprofen 600 mg tablet 600 mg PO Q8H PRN (Reason: pain) Qty: 14 0RF Rx Instructions: Take with food No Action (DME) Aerochamber MV Spacer See Rx Instructions .Route Qty: 1 0RF Rx Instructions: As directed Discharge Instructions Stand Alone Forms: Nursing Discharge Form Referrals: Suzy Montejo NP [Primary Care Provider] - (The office should call you to set up hospital follow up within 10-14 days. They have your information, but you may call them as well. ) Activity:: Activity as Tolerated Equipment/Supplies:: No Equipment Needed Diet:: As Tolerated Discharge Orders Discharge Orders: Discharge Order (Routine); Ordered 05/15/24 Ordered By: Gopal Ramos Discharge Data Discharge Date/Time-TO BE ENTERED AT DEPARTURE: 05/15/24 12:35 DS: Summary Time Spent with Patient providing and/or coordinating discharge services: Greater than 30 minutes Status at Discharge Functional status at discharge: independent ambulation Overall status at discharge: patient is back to baseline Mental Status: mental status grossly normal Speech and Movement: speech and movement normal Mood: congruent mood Affect: normal affect Quality:SDOH Health Related Social Needs: Health related social needs problems related to housing/economic circumstances (Z59.89) Exam Narrative Exam Narrative: Well-appearing older female sitting up in the chair no acute distress, ANO x 4, heart regular rhythm, lungs clear to auscultation bilaterally, abdomen soft, nontender, nondistended Psych Mental Status: mental status grossly normal Speech and Movement: speech and movement normal Mood: congruent mood Affect: normal affect DS: Data Vitals/I&O Vitals and I&O: Vital Signs Temperature 97.5 F L 05/15/24 07:46 Temperature Source Temporal Artery Scan 05/15/24 07:46 Pulse 82 05/15/24 07:46 Pulse Rhythm Regular 05/13/24 02:35 Respiratory Rate 16 05/15/24 07:46 Respiratory Effort Normal, Non-Labored 05/13/24 02:35 Respiratory Depth Normal 05/13/24 02:35 Respiratory Pattern Normal 05/13/24 02:35 Blood Pressure 118/70 05/15/24 07:46 Blood Pressure Position Sitting 05/12/24 21:35 Pulse Oximetry 94 05/15/24 07:46 Oxygen Delivery Method Room Air 05/15/24 07:46 Oxygen Flow Rate 0 05/15/24 07:46 Pain Level 0 05/14/24 15:37 Comment RN notified 05/14/24 07:29 Intake & Output 05/14/24 05/15/24 05/15/24 17:59 05:59 17:59 Intake Total 1900 / 1900 400 / 2300 100 / 100 Output Total 1400 / 1400 600 / 2000 200 / 200 Balance 500 / 500 -200 / 300 -100 / -100 Weight 138 lb 14.259 oz 136 lb 14.513 oz Intake: IV 1400 / 1400 400 / 1800 100 / 100 Oral 500 / 500 Output: Urine 1400 / 1400 600 / 2000 200 / 200 Other: Urine Color Straw Yellow Yellow Urine Appearance Clear Clear Clear Urine Odor None Normal None Stool Size Moderate Stool Characteristics Liquid Brown Data Completed and Pending Labs on day of discharge: Labs from last 24 hours 05/15/24 05/13/24 05:50 19:36 WBC 9.11 RBC 4.04 Hgb 12.0 Hct 36.0 MCV 89 MCH 29.7 MCHC 33.3 RDW 14.4 Plt Count 330 MPV 9.1 Immature Gran % 0.2 Neutrophils % 66.5 Lymphocytes % 17.8 Monocytes % 8.2 Eosinophils % 6.9 Basophils % 0.4 Nucleated RBC % 0.0 Absolute Neutrophils 6.05 Absolute Lymphocytes 1.62 Absolute Monocytes 0.75 Absolute Eosinophils 0.63 Absolute Basophils 0.04 Sodium 142 Potassium 3.4 L Chloride 106 Carbon Dioxide 30.0 Anion Gap 6.0 BUN 12 Creatinine 0.8 Est GFR (CKD-EPI 2020) 76.79 Glucose 108 H Calcium 8.9 Magnesium 2.0 Total Bilirubin 0.29 AST 34 ALT 17 Alkaline Phosphatase 82 Total Protein 6.7 Albumin 2.9 L Stool Campylobacter PCR Negative Stool Salmonella PCR Negative Stool Shigella PCR Negative Shiga Toxin (PCR) Negative PFSH All Active Problems (Updated 05/15/24 @ 11:41 by Gopal Ramos MD) Diarrhea (Acute) B12 deficiency (Chronic) Iron deficiency (Chronic) Acute GI bleeding (Acute) Colitis (Acute) Astasia-abasia (Acute) Orthostatic tremor (Acute) Cervical stenosis of spinal canal (Acute) Ataxia (Acute) Impaired gait (Acute) Generalized anxiety disorder (Chronic) Periodic limb movement disorder (PLMD) (Chronic) Essential hypertension (Chronic) Metabolic dysfunction-associated steatotic liver disease (MASLD) (Chronic) Hyperlipidemia (Chronic) Prediabetes (Chronic) Osteoporosis (Chronic) Bisphosphonates started 2019 Medical History (Updated 05/15/24 @ 11:41 by Gopal Ramos MD) Colitis (~01/2022) Surgical History S/P vaginal hysterectomy H/O bladder repair surgery Family History Mother , late 80s of dementia Essential hypertension Alzheimers disease Hyperlipidemia Father , in his late 80s Liver cancer Brother No problems noted. Brother No problems noted. Son No problems noted. Son No problems noted. Daughter No problems noted. Maternal Grandfather , age 86 Lung cancer Maternal Grandmother , age 61 Brain aneurysm Paternal Grandfather , age 53 Alzheimers disease Paternal Grandmother , age 98 Alzheimers disease Social History Smoking/Tobacco Use Status: Never Second Hand Exposure: No Smoking risk assessment performed?: Yes Alcohol Intake: former Drug use: Never Substance use type: does not use Adopted: No Caregiver/Support person: No Household members: none Housing: apartment Communication Needs: None Education Level: high school Details: GED Do you need help understanding health information?: Never current occupation: [employer] Pets and animals: No Sexually active: No Do you think of yourself as: straight/heterosexual Current gender identity: female What is your relationship status?: How often do you talk on the phone with friends or family?: twice per week How often do you get together with friends or relatives?: once per week How often do you attend mandaeism or judaism services?: decline to answer Do you belong to any clubs or organized social groups?: decline to answer Panel score (0-1 are the most socially isolated patients): 1 What type of physical activity do you participate in: other Details: PT workouts, cleaning at Sirisha/Islam: None Special sirisha needs: No Seatbelt use: always Helmet use: No Drive intox or ride w/intox driver wheelchair: No Firearms in home: No Do you feel safe at home: Yes Do you feel safe in your relationship?: Yes Victim of physical abuse: No Victim of emotional abuse: No Victim of sexual abuse: No Would you like helpful sources: No Female Reproductive History Menstrual Menopause type: surgical History History 3 Para 3 Hx # Term Pregnancies Multiple births Hx # Pregnancies Ectopic pregnancies AB induced Hx Number of Living Children 3 AB spontaneous Time Spent with Patient Time Spent with Patient: <45 minutes Time was spent: preparing to see the patient(eg.review tests), obtaining and/or reviewing separately otained hiistory, ordering medications,tests, procedures, referring, communicating with other health animal care service worker, indepentently interpreting results, counseling the patient and care coordination
== END 2024-05-15 12:35 | disposition home or self-care (01) | DRG 392 ==
LOC: ER 05-13 01:37 → MS 05-13 02:32
PROVIDERS: Hospitalist; Student in an Organized Health Care Education/Training Program; Admitting Provider Family Medicine; Emergency Provider Physician Assistant; PCP Nurse Practitioner Family; Visit Provider Family Medicine
DX: K52.9 Noninfective gastroenteritis and colitis, unspecified (principal); K92.1 Melena; E87.20 Acidosis, unspecified; G47.61 Periodic limb movement disorder; I10 Essential (primary) hypertension; F41.1 Generalized anxiety disorder; E53.8 Deficiency of other specified B group vitamins; M81.0 Age-related osteoporosis without current pathological fracture; R73.03 Prediabetes; E78.5 Hyperlipidemia, unspecified; R26.89 Other abnormalities of gait and mobility; G25.2 Other specified forms of tremor; K76.0 Fatty (change of) liver, not elsewhere classified; D50.9 Iron deficiency anemia, unspecified; E87.6 Hypokalemia; R00.0 Tachycardia, unspecified
CPT/HCPCS: 00123; 36415; 80053; 82550; 83690; 84145; 85027; 85652; 86850; 86900; 86901; 87493; 87505; 93005; 96361; 96365; 96367; 96375; 97110; 97162; 97530; 99222; 99285; 74174; 81003; 81015; 83540; 83605; 83615; 83735; 84484; 85014; 85018; 85025; 85610; 86140; 93010; 94760; 99223; 99233; 99239; J0744; J1836; J2270; J2470; J3490

== ENCOUNTER → 2024-05-20 14:44 | Outpatient (BNVA) | payer MEDICARE, SELFPAY | PROVIDERS: PCP Nurse Practitioner Family; Visit Provider Psychiatry & Neurology Neurology | DX: R26.9 Unspecified abnormalities of gait and mobility (principal); M48.02 Spinal stenosis, cervical region | CPT/HCPCS: 99214 ==

== ENCOUNTER 2024-08-20 03:09 | Outpatient (RCR) | payer MEDICARE, SELFPAY ==
[2024-08-20] MEDS: Normal Saline Flush 5 ML SYR IVP (12:51)
[2024-08-20] MEDS: ZOLEDRONIC ACID/MANNITOL/WATER 5 MG/100 ML BTL 300 MG IVPB (13:12)
== END 2024-08-27 23:59 | disposition home or self-care (01) ==
LOC: INF 03:09
PROVIDERS: PCP Nurse Practitioner Family; Visit Provider Nurse Practitioner Family
DX: M81.0 Age-related osteoporosis without current pathological fracture (principal)
CPT/HCPCS: 96365; J3489